=== PATIENT | male | born 1945 | race Caucasian/White ===

== ENCOUNTER 2018-03-08 07:58 | Inpatient (IN) | payer MEDICARE ==
[2018-03-08] MEDS ORDERED: LIDOCAINE 5% (700 MG) TRANSDERMAL ADH..PATCH TP ONE (09:08)
--- NOTE | 2018-03-08 09:51 | RADIOLOGY REPORT (SQ) ---
EXAM DESCRIPTION: CT LTD RENAL STONE PROTOCOL ON COMPLETED DATE/TIME: 03/08/2018 9:20 am REASON FOR STUDY: right flank pain COMPARISON: None. TECHNIQUE: CT scan of the abdomen and pelvis performed without intravenous or oral contrast. Images reviewed with lung, soft tissue, and bone windows. Reconstructed coronal and sagittal MPR images revi ewed. All images stored on PACS. All CT scanners at this facility use dose modulation, iterative reconstruction, and/or weight based d osing when appropriate to reduce radiation dose to as low as reasonably achievable (ALARA). [facility]: Dose Right [facility]: CareDose [facility]: Dose Right [facility]: Teradose 4D [facility]: Smart [employer] RADIATION DOSE: CT Rad equipment meets quality standard of care and radiation dose reduction techniq ues were employed. CTDIvol: 13.2 mGy. DLP: 770 mGy-cm.mGy. LIMITATIONS: None. FINDINGS: LOWER CHEST: No significant findings. No nodules or infiltrates. NON-CONTRASTED LIVER, SPLEEN, ADRENALS: Evaluation limited by lack of IV contrast. Spleen is enlarge d measuring 14 cm in craniocaudal dimension. No identified significant masses. PANCREAS: No masses. No peripancreatic inflammatory changes. GALLBLADDER: Gallbladder is contracted with calcified stones. RIGHT KIDNEY AND URETER: No suspicious masses. Assessment limited by lack of IV contrast. No signif icant calcifications. No hydronephrosis or hydroureter. Ectopic superior and lateral insertion of the ureter into the urinary bladder. LEFT KIDNEY AND URETER: No suspicious masses. Assessment limited by lack of IV contrast. No signifi cant calcifications. Very distal left ureter is moderately dilated without obstructing lesion or st one is visualized. Likely physiologic. Remainder the ureter is nondilated. Anterior and lateral ec topic insertion of the ureter. AORTA AND RETROPERITONEUM: No aneurysm. Mild scattered calcified plaque of the visualized aortoiliac system. No retroperitoneal masses or adenopathy. BOWEL AND PERITONEAL CAVITY: Small hiatal hernia with mild wall thickening. Metallic clips along the anterior antrum of the stomach. No dilated loops of bowel. No intraperitoneal free fluid or free a ir. APPENDIX: Normal. PELVIS, BLADDER, AND ABDOMINAL WALL:No abnormal masses. No free fluid. Urinary bladder wall is accen tuated as the urinary bladder is incompletely distended. Prostate is enlarged. BONES: Diffusely sclerotic appearance of the visualized osseous structures. Oblique pathological fra cture of the posterior inferior L1 vertebral body with 8 mm of retropulsion into the central canal. OTHER: No other significant finding. IMPRESSION: 1. No nephrolithiasis. Ectopic insertion of the ureters, as detailed above. 2. Diffusely sclerotic appearance of the osseous structures, concerning for metastatic disease. Path ological fracture of the posterior inferior L1 vertebral body with 8 mm of retropulsion into the cent ral canal. 3. Cholelithiasis. 4. Prostatomegaly. 5. Splenomegaly. 6. Small hiatal hernia with mild wall thickening. Correlate with patient's endoscopy history COMMENT: This report was called to KIMBERLY NOEL DO at09:42 on 03/08/2018. Quality ID # [id number]: Final reports with documentation of one or more dose reduction techniques (e.g., Au tomated exposure control, adjustment of the mA and/or kV according to patient size, use of iterative reconstruction technique) TECHNICAL DOCUMENTATION: JOB ID: [id number] [employer]- All Rights Reserved Reading location - IP/workstation name: [email or web address]
[2018-03-08 10:04] LABS: ABSOLUTE LYMPHOCYTES (AUTO) 0.9 10^3/uL (0.5-4.7); ABSOLUTE MONOCYTES (AUTO) 1.1 10^3/uL (0.1-1.4); ABSOLUTE NEUT (AUTO) 14.8 10^3/uL (1.7-8.2); BASOPHILS % (AUTO) 0.1 % (0-2); EOSINOPHILS % (AUTO) 0.1 % (0-6); HEMATOCRIT 38.3 % (37.9-51.0); HEMOGLOBIN 13.1 g/dL (13.5-17.0); LYMPHOCYTES % (AUTO) 5.5 % (13-45); MEAN CORPUSCULAR HEMOGLOBIN 29.8 pg (27.0-33.4); MEAN CORPUSCULAR HGB CONC 34.1 g/dL (32.0-36.0); MEAN CORPUSCULAR VOLUME 87 fl (80-97); MONOCYTES % (AUTO) 6.6 % (3-13); PLATELET COUNT 157 10^3/uL (150-450); RED BLOOD COUNT 4.39 10^6/uL (4.35-5.55); RED CELL DISTRIBUTION WIDTH 13.5 % (11.5-14.0); SEGMENTED NEUTROPHILS % (AUTO) 87.7 % (42-78); TOTAL CELLS COUNTED % (AUTO) 100 %; WHITE BLOOD COUNT 16.8 10^3/uL (4.0-10.5)
[2018-03-08 10:06] LABS: APPEARANCE,URINE CLOUDY; BILIRUBIN,URINE NEGATIVE (NEGATIVE); COLOR,URINE AMBER; GLUCOSE, URINE 50 mg/dL (NEGATIVE); KETONES,URINE NEGATIVE (NEGATIVE); LEUKOCYTE ESTERASE,URINE LARGE (NEGATIVE); NITRITE,URINE NEGATIVE (NEGATIVE); PROTEIN,URINE 100 mg/dL (NEGATIVE); URINE SPECIFIC GRAVITY 1.013
[2018-03-08 10:11] LABS: ALANINE AMINOTRANSFERASE 33 U/L (21-72); ALBUMIN 3.8 g/dL (3.5-5.0); ALKALINE PHOSPHATASE 1124 U/L (38-126); ASPARTATE AMINO TRANSFERASE 50 U/L (17-59); BILIRUBIN,DIRECT 0.9 mg/dL (0.0-0.4); BILIRUBIN,TOTAL 1.6 mg/dL (0.2-1.3); BLOOD UREA NITROGEN 68 mg/dL (7-20); CALCIUM 8.5 mg/dL (8.4-10.2); GLUCOSE 125 mg/dL (75-110); LIPASE 110.5 U/L (23-300); POTASSIUM 4.7 mmol/L (3.6-5.0); TOTAL PROTEIN 7.5 g/dL (6.3-8.2)
[2018-03-08] MEDS ORDERED: MORPHINE SULFATE 10 MG/ML INJ IV ONE (10:15)
[2018-03-08] MEDS ORDERED: ONDANSETRON HCL INJ/PF 4 MG/2 ML SDV IV ONE (10:15)
[2018-03-08 10:16] LABS: CARBON DIOXIDE 17 mmol/L (22-30); CHLORIDE 102 mmol/L (98-107); SODIUM 140.7 mmol/L (137-145)
[2018-03-08] MEDS ORDERED: DOXYCYCLINE HYCLATE INJ 100 MG VIAL IV ONE (10:18)
[2018-03-08 10:19] LABS: ANION GAP 22 (5-19)
[2018-03-08] MEDS ORDERED: NORMAL SALINE 1000 ML 1,000 ML IV ONE (10:36)
[2018-03-08] MEDS ORDERED: FENTANYL CITRATE INJ/PF 100 MCG/2 ML AMPUL IV ONE (12:24)
--- NOTE | 2018-03-08 13:33 | ER Document Report ---
ED General - General Chief Complaint: Back Pain Stated Complaint: BACK PAIN Time Seen by Provider: 03/08/18 08:55 TRAVEL OUTSIDE OF THE [place] IN LAST 30 DAYS: No - HPI Patient complains to provider of: Back pain Notes: Patient coming in for evaluation of back pain. Patient is currently visiting from [facility]. Patient states on past medical history is diabetes. Patient states no traumaHer back pain ongoing 2 weeks denies any heavy lifting or any new physical activity. Patient chronic tremors and has a fever for the last 48 hours afebrile here. T-max at home was 102. Patient denies any cough nausea vomiting diarrhea denies any difficulty in urinating. Patient states pain has been going across his back however today the pain is more prominent in the right flank area. Patient sitting states pain upon ambulation denies any numbness or tingling denies any saddle anesthesias or bowel or bladder incontinence. - Related Data Allergies/Adverse Reactions: Penicillins Allergy (Verified 03/08/18 08:03) Past Medical History - Social History Smoking Status: Unknown if Ever Smoked Family History: Reviewed & Not Pertinent Patient has suicidal ideation: No Patient has homicidal ideation: No Renal/ Medical History: Denies: Hx Peritoneal Dialysis Review of Systems - Review of Systems Constitutional: No symptoms reported EENT: No symptoms reported Cardiovascular: No symptoms reported Respiratory: No symptoms reported Gastrointestinal: No symptoms reported Genitourinary: No symptoms reported Male Genitourinary: No symptoms reported Musculoskeletal: Back pain Skin: No symptoms reported Hematologic/Lymphatic: No symptoms reported Neurological/Psychological: No symptoms reported -: Yes All other systems reviewed and negative Physical Exam - Vital signs Vitals: Temp Pulse Resp BP Pulse Ox 98.2 F 94 16 149/62 H 99 03/08/18 08:07 03/08/18 08:07 03/08/18 08:07 03/08/18 08:07 03/08/18 08:07 Interpretation: Normal - General General appearance: Appears well, Alert - HEENT Head: Normocephalic, Atraumatic Eyes: Normal Pupils: PERRL - Respiratory Respiratory status: No respiratory distress Chest status: Nontender Breath sounds: Normal Chest palpation: Normal - Cardiovascular Rhythm: Regular Heart sounds: Normal auscultation Murmur: No - Abdominal Inspection: Normal Distension: No distension Bowel sounds: Normal Tenderness: Nontender Organomegaly: No organomegaly - Rectal Prostate: Enlarged - Nontender Notes: Skin tag of the buttocks. Evaluation shows light brown stool rectal tone is intact. Palpation of the prostate is enlarged prostate however is nontender. - Back Back: Normal, Nontender - Extremities General upper extremity: Normal inspection, Nontender, Normal color, Normal ROM , Normal temperature General lower extremity: Normal inspection, Nontender, Normal color, Normal ROM , Normal temperature, Normal weight bearing. No: Marielle's sign - Neurological Neuro grossly intact: Yes Cognition: Normal Orientation: AAOx4 Alexandra Coma Scale Eye Opening: Spontaneous Peck Coma Scale Verbal: Oriented Alexandra Coma Scale Motor: Obeys Commands Alexandra Coma Scale Total: 15 Speech: Normal Motor strength normal: LUE, RUE, LLE, RLE Sensory: Normal - Psychological Associated symptoms: Normal affect, Normal mood - Skin Skin Temperature: Warm Skin Moisture: Dry Skin Color: Normal Course - Re-evaluation Re-evalutation: 03/08/18 13:31 Patient coming in with lower back pain with no neurological deficits. No saddle anesthesias normal rectal tone able to ambulate in the ER knee reflexes intact. CT scan showed his irregular prostate will more likely metastatic disease in the spine causing a pathological fracture of L1 with 8 mm retropulsion into the spinal canal. I did discuss patient's case with Dr. Jovany Mcgregor neurosurgery at [facility] he was able to look at the films have been performed here in the ER. At this time since the patient has no neurological symptoms and with the films does not see a need for any emergent neurological services to be provided. Recommend pain control recommend the patient stay here in the ER at the hospital for any significant metastases and possibly have an MRI of the spine performed. Patient is from [facility] and wishing to go back to [place] for his treatment. At this time because the abnormalities of white count leukocytosis acute renal failure with a urinary tract infection did discuss with the hospitalist after discussing the patient's case with neurosurgery. Will admit the patient for the renal failure and infection will continue to monitor patient - Vital Signs Vital signs: Temp Pulse Resp BP Pulse Ox 98.1 F 75 16 153/59 H 98 03/08/18 12:28 03/08/18 12:28 03/08/18 12:28 03/08/18 12:28 03/08/18 12:28 - Laboratory Result Diagrams: 03/08/18 09:28 03/08/18 09:28 Laboratory results interpreted by me: 03/08/18 03/08/18 03/08/18 09:28 09:28 09:28 WBC 16.8 H Hgb 13.1 L Seg Neutrophils % 87.7 H Lymphocytes % 5.5 L Absolute Neutrophils 14.8 H Carbon Dioxide 17 L Anion Gap 22 H BUN 68 H Creatinine 4.57 H Est GFR ( Amer) 15 L Est GFR (Non-Af Amer) 13 L Glucose 125 H Lactic Acid Total Bilirubin 1.6 H Direct Bilirubin 0.9 H Alkaline Phosphatase 1124 H Urine Protein 100 H Urine Glucose (UA) 50 H Urine Blood LARGE H Urine Urobilinogen 4.0 H Ur Leukocyte Esterase LARGE H 03/08/18 14:17 WBC Hgb Seg Neutrophils % Lymphocytes % Absolute Neutrophils Carbon Dioxide Anion Gap BUN Creatinine Est GFR ( Amer) Est GFR (Non-Af Amer) Glucose Lactic Acid 2.2 H Total Bilirubin Direct Bilirubin Alkaline Phosphatase Urine Protein Urine Glucose (UA) Urine Blood Urine Urobilinogen Ur Leukocyte Esterase Discharge - Discharge Clinical Impression: Metastatic bone lesions, Cholelithiasis, Diabetes mellitus type 2 in nonobese, Pathologic compression fracture of spine, Enlarged prostate, Elevated alkaline phosphatase level Urinary tract infection Qualifiers: Urinary tract infection type: acute cystitis Hematuria presence: with hematuria Qualified Code(s): N30.01 - Acute cystitis with hematuria Acute renal failure Qualifiers: Acute renal failure type: unspecified Qualified Code(s): N17.9 - Acute kidney failure, unspecified Condition: Good Disposition: ADMITTED INPATIENT Admitting Provider: Hospitalist - Dut Unit Admitted: Medical Floor
[2018-03-08] MEDS ORDERED: CEFTRIAXONE 1 GM/D5W RTU 1 GM/50 ML RTUPB IV ONE (13:34)
[2018-03-08] MEDS ORDERED: CEFTRIAXONE INJ 1000 MG VIAL ONE (13:56)
[2018-03-08] MEDS ORDERED: ONDANSETRON HCL INJ/PF 4 MG/2 ML SDV IV PRN (14:08)
[2018-03-08] MEDS ORDERED: ACETAMINOPHEN 325 MG TABLET PO PRN (14:08)
[2018-03-08] MEDS ORDERED: OXYCODONE-ACETAMINOPHEN 5-325 MG TABLET PO PRN (14:08)
[2018-03-08] MEDS ORDERED: DEXTROSE 40% GEL 15 GM TUBE PO PRN ×2 (14:18)
[2018-03-08] MEDS ORDERED: DEXTROSE 50%-WATER 25 GM/50 ML DISP.SYRIN IV PRN ×2 (14:18)
[2018-03-08] MEDS ORDERED: GLUCAGON,HUMAN RECOMB 1 MG INJ IM PRN (14:18)
[2018-03-08] MEDS ORDERED: DEXAMETHASONE SOD PHOS INJ 10 MG/1 ML VIAL IV ONE (14:37)
--- NOTE | 2018-03-08 14:52 | PDOC H&P ---
History of Present Illness Admission Date/PCP: 03/08/18 1400 out of [facility] PCP Patient complains of: back pain History of Present Illness: SY MONTE is a 72 year old male with past medical history of only diabetes, who presented to the ED complaining of lower back pain which started about 2 weeks ago. Patient states that he has been having lower back pain for the last 2 weeks but it has been tolerable. States he has been taking some over -the-counter pain medicine for it although it has been progressively getting worse. Last night he just could not take it anymore as the pain was 10 out of 10 and hence he came to the ER this morning for worsening back pain. He denies abdominal pain, nausea/vomiting, groin numbness, bowel/urinary incontinence or lower extremity weakness. He does admit to having a fever on 03/04/18 of 102 Fahrenheit and has been feeling some chills otherwise. He is back pain is nonradiating and sharp in nature. He denies any alleviating factors but movement does make it worse. He denies dysuria, chest pain, shortness of breath , headaches or blurry vision at this time. He does admit to some urinary frequency and urgency at times. Patient is from out of [facility], [facility]. 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 States that he was diagnosed with diabetes type 2 last year and has been on metformin since. Family and patient tells me that his A1c is well controlled but does not know how much it is. In the ED he received 1 dose of doxy and he had a CT of the lumbar spine due to pain which revealed some abnormal findings. Please see CT results for exact findings. Past Medical History Endocrine Medical History: Reports: Diabetes Mellitus Type 2 Malignancy History Note: None that he knows of Social History Smoking Status: Unknown if Ever Smoked - Advance Directive Resuscitation Status: Declines CPR but accepts intubation Family History Parental Family History Reviewed: Yes Children Family History Reviewed: Unknown Sibling(s) Family History Reviewed.: Unknown Medication/Allergy Allergies/Adverse Reactions: Penicillins Allergy (Verified 03/08/18 08:03) Review of Systems All systems: reviewed and no additional remarkable complaints except as stated Constitutional: PRESENT: chills, fever(s) Cardiovascular: ABSENT: chest pain Respiratory: ABSENT: cough Gastrointestinal: ABSENT: abdominal pain, nausea, vomiting Musculoskeletal: PRESENT: back pain. ABSENT: joint swelling Hematologic/Lymphatic: ABSENT: easy bruising, lymphadenopathy Physical Exam Vital Signs: Temp Pulse Resp BP Pulse Ox 98.1 F 75 16 153/59 H 98 03/08/18 12:28 03/08/18 12:28 03/08/18 12:28 03/08/18 12:28 03/08/18 12:28 Intake & Output 03/07/18 03/08/18 03/09/18 06:59 06:59 06:59 Intake Total 1000 Balance 1000 Weight 209 lb 3.499 oz General appearance: PRESENT: no acute distress, well-developed, well-nourished Head exam: PRESENT: atraumatic, normocephalic Eye exam: PRESENT: EOMI, PERRLA. ABSENT: scleral icterus Ear exam: PRESENT: normal external ear exam Mouth exam: PRESENT: neck supple, tongue midline Neck exam: ABSENT: tracheal deviation Cardiovascular exam: PRESENT: +S1, +S2 Pulses: PRESENT: +2 pedal pulses bilateral GI/Abdominal exam: PRESENT: normal bowel sounds, soft. ABSENT: tenderness Extremities exam: ABSENT: joint swelling, pedal edema Musculoskeletal exam: PRESENT: full ROM, tenderness - Midline thoracic backroom associate to palpation Neurological exam: PRESENT: alert, awake, oriented to person, oriented to place , oriented to time, oriented to situation, CN II-XII grossly intact Skin exam: PRESENT: dry, warm Results Laboratory Results: 03/08/18 09:28 03/08/18 09:28 03/08/18 03/08/18 03/08/18 09:28 09:28 09:28 WBC 16.8 H RBC 4.39 Hgb 13.1 L Hct 38.3 MCV 87 MCH 29.8 MCHC 34.1 RDW 13.5 Plt Count 157 Seg Neutrophils % 87.7 H Lymphocytes % 5.5 L Monocytes % 6.6 Eosinophils % 0.1 Basophils % 0.1 Absolute Neutrophils 14.8 H Absolute Lymphocytes 0.9 Absolute Monocytes 1.1 Absolute Eosinophils 0.0 Absolute Basophils 0.0 Sodium 140.7 Potassium 4.7 Chloride 102 Carbon Dioxide 17 L Anion Gap 22 H BUN 68 H Creatinine 4.57 H Est GFR ( Amer) 15 L Est GFR (Non-Af Amer) 13 L Glucose 125 H Calcium 8.5 Total Bilirubin 1.6 H AST 50 ALT 33 Alkaline Phosphatase 1124 H Total Protein 7.5 Albumin 3.8 Lipase 110.5 Urine Color RINA Urine Appearance CLOUDY Urine pH 5.0 Ur Specific Aurora 1.013 Urine Protein 100 H Urine Glucose (UA) 50 H Urine Ketones NEGATIVE Urine Blood LARGE H Urine Nitrite NEGATIVE Ur Leukocyte Esterase LARGE H Urine WBC (Auto) >182 Urine RBC (Auto) >182 03/08/18 09:28 Creatine Kinase 91 Impressions: Limited or Localized CT 03/08/18 09:07 IMPRESSION: 1. No nephrolithiasis. Ectopic insertion of the ureters, as detailed above. 2. Diffusely sclerotic appearance of the osseous structures, concerning for metastatic disease. Pathological fracture of the posterior inferior L1 vertebral body with 8 mm of retropulsion into the central canal. 3. Cholelithiasis. 4. Prostatomegaly. 5. Splenomegaly. 6. Small hiatal hernia with mild wall thickening. Correlate with patient's endoscopy history Assessment & Plan - Diagnosis (1) Sepsis Is this a current diagnosis for this admission?: Yes Plan: Elevated white count, tachycardia, fever at home and abnormal UA. Likely his sepsis secondary to his UTI. In the ER he received 1 dose of doxycycline. All stop doxy and continue with Rocephin daily. Urine cultures and blood cultures have been sent and pending. (2) UTI (urinary tract infection), bacterial Is this a current diagnosis for this admission?: Yes Plan: See plan above (3) Acute renal failure Qualifiers: Acute renal failure type: unspecified Qualified Code(s): N17.9 - Acute kidney failure, unspecified Is this a current diagnosis for this admission?: Yes Plan: Unclear cause of his renal failure but he did mention that he has not been having good p.o. intake in the last few days.? Hydronephrosis. CT scan without contrast did not show any but to get a better picture we will go ahead and stat order an ultrasound renal. He has no history of kidney disease and today's creatinine is greater than 4. Concern for hydronephrosis. Start him on IV fluids with normal saline at 150 cc/h and repeat blood work in the morning. I am hoping his creatinine will improve gradually. Hold nephrotoxic agents. (4) Pathologic compression fracture of spine Is this a current diagnosis for this admission?: Yes Plan: CT scan shows sclerotic lesions of the spine with an L1 fracture that is suspected to be pathologic. Given his enlarged prostate and sclerotic lesions there is a concern for metastatic disease. I have ordered a PSA. I will also consulted oncology with Dr. Pena. He has recommended some extended blood work and testing also. Patient comes from [place] and I discussed about further workup and they at this time would like his kidney functions improved and they want to go back to [place] for further workup for suspected cancer. I will also ordered an MRI but patient declined MRI as nursing informed me later. Pain control for now. He denies any urinary/bowel incontinence or groin numbness at this time. (5) Enlarged prostate Is this a current diagnosis for this admission?: Yes Plan: See plan above (6) Elevated alkaline phosphatase level Is this a current diagnosis for this admission?: Yes Plan: Likely secondary to suspected metastatic disease-? Prostate cancer (7) Diabetes mellitus type 2 in nonobese Is this a current diagnosis for this admission?: Yes Plan: He is not sure of his A1c number-we will check it tomorrow. Hold metformin for now given his acute renal failure. Start him on sliding scale insulin for now. (8) Hiatal hernia Is this a current diagnosis for this admission?: Yes Plan: Incidental finding on EX-[id number]-[id number] (9) Cholelithiasis Is this a current diagnosis for this admission?: Yes Plan: Incidental finding on CT-he does not profess of any abdominal pains at this time. Will monitor for now. (10) Lumbar back pain Is this a current diagnosis for this admission?: Yes Plan: Likely secondary to his pathological fracture as discussed above- see plan. - Time Time Spent: 50 to 70 Minutes - Plan Summary Plan Summary: Admit inpatient-I expect him to stay for at least 2 midnights requiring IV fluids and IV antibiotics.
[2018-03-08] MEDS: NORMAL SALINE 1000 ML 1,000 ML IV PRN ×2 (15:22→23:00)
--- NOTE | 2018-03-08 16:00 | RADIOLOGY REPORT (SQ) ---
EXAM DESCRIPTION: U/S RETROPERITON (RENAL/AORTA) COMPLETED DATE/TIME: 03/08/2018 3:51 pm REASON FOR STUDY: arf COMPARISON: CT 03/08/2018 TECHNIQUE: Dynamic and static grayscale images acquired of the kidneys and bladder and recorded on P ACS. Additional selected color Doppler and spectral images recorded. LIMITATIONS: Suboptimal exam due to overlying bowel shadowing. FINDINGS: RIGHT KIDNEY: Normal size measuring 9.5 cm in length. Normal echogenicity. No hydronephr osis. LEFT KIDNEY: Normal size measuring 9.9 cm in length. Normal echogenicity. No hydronephrosis. BLADDER: Mildly distended without discrete mass or wall thickening. OTHER FINDINGS: No other significant finding. IMPRESSION: Suboptimal exam due to overlying bowel gas. No hydronephrosis. TECHNICAL DOCUMENTATION: JOB ID: [id number] [employer]- All Rights Reserved Reading location - IP/workstation name: [email or web address]
[2018-03-08] MEDS ORDERED: DEXAMETHASONE 4 MG TABLET ONE (18:14)
[2018-03-08] MEDS: DEXAMETHASONE 4 MG TABLET PO SCH ×2 (18:18→23:00)
[2018-03-08] MEDS: HEPARIN SOD (PORCINE) 5,000 UNIT/ML 1 ML SYRINGE SUBCUT SCH (21:42)
[2018-03-08] MEDS: FAMOTIDINE 20 MG TABLET PO SCH (21:42)
[2018-03-09] MEDS ORDERED: VANCOMYCIN HCL 1,000 MG in DEXTROSE 5%-WATER 250 ML IV ONE (03:00)
[2018-03-09] MEDS ORDERED: VANCOMYCIN HCL INJ 1000 MG VIAL IV PRN ×2 (03:00→04:13)
[2018-03-09] MEDS ORDERED: VANCOMYCIN HCL INJ 1000 MG VIAL ONE (03:27)
[2018-03-09] MEDS: DEXAMETHASONE 4 MG TABLET PO SCH ×4 (05:21→23:05)
[2018-03-09 05:55] LABS: HEMATOCRIT 34.2 % (37.9-51.0); HEMOGLOBIN 11.6 g/dL (13.5-17.0); MEAN CORPUSCULAR HEMOGLOBIN 29.7 pg (27.0-33.4); MEAN CORPUSCULAR VOLUME 87 fl (80-97); PLATELET COUNT 100 10^3/uL (150-450); RED BLOOD COUNT 3.92 10^6/uL (4.35-5.55); WHITE BLOOD COUNT 14.9 10^3/uL (4.0-10.5)
[2018-03-09] MEDS: NORMAL SALINE 1000 ML 1,000 ML IV PRN ×3 (06:16→21:23)
[2018-03-09] MEDS: HEPARIN SOD (PORCINE) 5,000 UNIT/ML 1 ML SYRINGE SUBCUT SCH ×3 (06:20→21:20)
[2018-03-09 06:29] LABS: ABSOLUTE LYMPHOCYTES# (MANUAL) 1.5 10^3/uL (0.5-4.7); ABSOLUTE NEUTROPHILS# (MANUAL) 13.4 10^3/uL (1.7-8.2); BASOPHILS % (MANUAL) 0 % (0-2); BLOOD UREA NITROGEN 77 mg/dL (7-20); CALCIUM 8.3 mg/dL (8.4-10.2); CARBON DIOXIDE 17 mmol/L (22-30); CHLORIDE 107 mmol/L (98-107); EOSINOPHILS % (MANUAL) 0 % (0-6); GLUCOSE 156 mg/dL (75-110); LYMPHOCYTES % (MANUAL) 10 % (13-45); MONOCYTES % (MANUAL) 0 % (3-13); SEGMENTED NEUTROPHILS % (MAN) 90 % (42-78); TOTAL CELLS COUNTED 100
[2018-03-09 06:30] LABS: ANION GAP 16 (5-19); CHOLESTEROL 141.64 mg/dL (0-200); PLATELET COMMENT ADEQUATE; POLYCHROMASIA 1+; SODIUM 139.5 mmol/L (137-145); TRIGLYCERIDES 230 mg/dL (<150)
[2018-03-09 06:40] LABS: DIRECT LDL 41 mg/dL (<100)
[2018-03-09 07:28] LABS: INTERNATIONAL RATION (INR) 1.22
[2018-03-09] MEDS: INSULIN REG, HUMAN 100 UNIT/ML 3 ML VIAL (PYX) SUBCUT PRN ×3 (09:23→21:20)
[2018-03-09] MEDS ORDERED: CEFTRIAXONE 1 GM/D5W RTU 1 GM/50 ML RTUPB IV SCH (10:00)
[2018-03-09] MEDS: CEFTRIAXONE SODIUM 1,000 MG in NORMAL SALINE 50 ML IV SCH (11:04)
--- NOTE | 2018-03-09 12:27 | PDOC CONSULTATION ---
Consultation Consult Date: 03/09/18 Attending physician:: JHON NAVAS Consult reason:: Newly noted bone lesions, severe back pain, renal failure History of Present Illness Admission Date/PCP: 03/08/18 14:33 Patient complains of: Back pain increasing over the last few months History of Present Illness: SY MONTE is a 72 year old male with recent history of increasing low back as well as left hip pain. He is visiting from [facility], and over the last 2-3 months has been increasing pain. Over the last week since he has been here, visiting at [facility], he has had severe pain to the point that he is not able to walk easily, and is at very poor p.o. intake taking in very limited fluids. Ultimately he was unable to get up easily so they brought him here to the ED, he had a CT noncontrasted stone protocol of the abdomen, which indicated diffuse sclerotic metastasis throughout the bony structures, L1 compression fracture with some retropulsion into central canal. I discussed this case with hospitalist yesterday, suggested initiation of Decadron 10 mg IV followed by 4 mg p.o. every 6 hours. Unfortunately his creatinine was 4.5 upon admission, slightly better today at 4.3. He has had aggressive hydration. Overall he feels much better today. Over the last year he has lost about 10-15 pounds but he has been trying to lose weight. Past Medical History Endocrine Medical History: Reports: Diabetes Mellitus Type 2 Past Surgical History Past Surgical History: Reports: Appendectomy Social History Smoking Status: Never Smoker Frequency of Alcohol Use: Social Hx Recreational Drug Use: No Drugs: None Hx Prescription Drug Abuse: No - Advance Directive Resuscitation Status: Declines CPR but accepts intubation Family History Family History: Reviewed & Not Pertinent Parental Family History Reviewed: Yes Children Family History Reviewed: Yes Sibling(s) Family History Reviewed.: Yes Medication/Allergy Home Medications: Metformin HCl [Glucophage 500 mg Tablet] 500 mg PO DAILY 03/08/18 Allergies/Adverse Reactions: Penicillins Allergy (Verified 03/08/18 08:03) Review of Systems Constitutional: PRESENT: fatigue, weakness, weight loss Cardiovascular: ABSENT: chest pain, dyspnea on exertion, edema, orthropnea, palpitations Gastrointestinal: ABSENT: abdominal pain, constipation, diarrhea, hematemesis, hematochezia, nausea, vomiting Musculoskeletal: PRESENT: back pain Neurological: ABSENT: abnormal gait, abnormal speech, confusion, dizziness, focal weakness, syncope Physical Exam Vital Signs: Temp Pulse Resp BP Pulse Ox 97.5 F 67 16 139/57 H 96 03/09/18 07:32 03/09/18 07:32 03/09/18 07:32 03/09/18 07:32 03/09/18 07:32 Intake & Output 03/08/18 03/09/18 03/10/18 06:59 06:59 06:59 Intake Total 2759 Output Total 475 Balance 2284 Weight 97.6 kg General appearance: PRESENT: no acute distress, well-developed, well-nourished Head exam: PRESENT: atraumatic, normocephalic Eye exam: PRESENT: conjunctiva pink, EOMI, PERRLA. ABSENT: scleral icterus Ear exam: PRESENT: normal external ear exam Mouth exam: PRESENT: moist, tongue midline Neck exam: ABSENT: carotid bruit, JVD, lymphadenopathy, thyromegaly Respiratory exam: PRESENT: clear to auscultation syed. ABSENT: rales, rhonchi, wheezes Cardiovascular exam: PRESENT: RRR. ABSENT: diastolic murmur, rubs, systolic murmur Pulses: PRESENT: normal dorsalis pedis pul Vascular exam: PRESENT: normal capillary refill GI/Abdominal exam: PRESENT: normal bowel sounds, soft. ABSENT: distended, guarding, mass, organolmegaly, rebound, tenderness Rectal exam: PRESENT: deferred Extremities exam: PRESENT: full ROM. ABSENT: calf tenderness, clubbing, pedal edema Neurological exam: PRESENT: alert, awake, oriented to person, oriented to place , oriented to time, oriented to situation, CN II-XII grossly intact. ABSENT: motor sensory deficit Psychiatric exam: PRESENT: appropriate affect, normal mood. ABSENT: homicidal ideation, suicidal ideation Skin exam: PRESENT: dry, intact, warm. ABSENT: cyanosis, rash Results Laboratory Results: 03/09/18 05:17 03/09/18 05:17 03/08/18 03/09/18 03/09/18 18:48 05:17 05:17 WBC 14.9 H RBC 3.92 L Hgb 11.6 L Hct 34.2 L MCV 87 MCH 29.7 MCHC 34.0 RDW 14.0 Plt Count 100 L Seg Neutrophils % Not Reportable Lymphocytes % Not Reportable Monocytes % Not Reportable Eosinophils % Not Reportable Basophils % Not Reportable Absolute Neutrophils Not Reportable Absolute Lymphocytes Not Reportable Absolute Monocytes Not Reportable Absolute Eosinophils Not Reportable Absolute Basophils Not Reportable Sodium 139.5 Potassium 5.0 Chloride 107 Carbon Dioxide 17 L Anion Gap 16 BUN 77 H Creatinine 4.32 H Est GFR ( Amer) 17 L Est GFR (Non-Af Amer) 14 L Glucose 156 H Lactic Acid 1.3 Calcium 8.3 L Magnesium 2.4 H Triglycerides 230 H Cholesterol 141.64 LDL Cholesterol Direct 41 VLDL Cholesterol 46.0 H HDL Cholesterol 21 L TSH 03/09/18 05:17 WBC RBC Hgb Hct MCV MCH MCHC RDW Plt Count Seg Neutrophils % Lymphocytes % Monocytes % Eosinophils % Basophils % Absolute Neutrophils Absolute Lymphocytes Absolute Monocytes Absolute Eosinophils Absolute Basophils Sodium Potassium Chloride Carbon Dioxide Anion Gap BUN Creatinine Est GFR ( Amer) Est GFR (Non-Af Amer) Glucose Lactic Acid Calcium Magnesium Triglycerides Cholesterol LDL Cholesterol Direct VLDL Cholesterol HDL Cholesterol TSH 3.43 Impressions: Renal Ultrasound 03/08/18 00:00 IMPRESSION: Suboptimal exam due to overlying bowel gas. No hydronephrosis. Limited or Localized CT 03/08/18 09:07 IMPRESSION: 1. No nephrolithiasis. Ectopic insertion of the ureters, as detailed above. 2. Diffusely sclerotic appearance of the osseous structures, concerning for metastatic disease. Pathological fracture of the posterior inferior L1 vertebral body with 8 mm of retropulsion into the central canal. 3. Cholelithiasis. 4. Prostatomegaly. 5. Splenomegaly. 6. Small hiatal hernia with mild wall thickening. Correlate with patient's endoscopy history Status: Image reviewed by me Assessment & Plan - Diagnosis (1) Pathologic compression fracture of spine Qualifiers: Encounter type: initial encounter Qualified Code(s): M48.50XA - Collapsed vertebra, not elsewhere classified, site unspecified, initial encounter for fracture Is this a current diagnosis for this admission?: Yes Plan: He does have L1 compression fracture, overall imaging concerning for bony metastasis. Continue with steroids. (2) Secondary malignant melanoma of bone Is this a current diagnosis for this admission?: Yes Plan: Does appear to be probably a metastatic bone lesion, the 2 top likelihoods would be prostate cancer as well as multiple myeloma. Today I sent off a myeloma workup. But ultimately, he would need biopsy of a bony area, consideration of biopsy of the L1 as well as kyphoplasty at the same time would be possible. However patient really wants to get workup and treatment done closer to home in [facility]. So our goal here would be to hydrate him, hopefully improve his kidney function, probably get him to a dischargeable condition and communicate with physicians in [facility] on lab results done here. No further imaging is possible given his kidney function. (3) Acute renal failure Qualifiers: Acute renal failure type: unspecified Qualified Code(s): N17.9 - Acute kidney failure, unspecified Is this a current diagnosis for this admission?: Yes Plan: Unknown cause of acute renal failure, it is not hydronephrosis as both ultrasound as well as CT is ruled that out. It may be direct damage to the kidneys from the malignant process or severe dehydration. Hydration is continued for now. Awaiting improvement. Patient is making urine and electrolytes are reasonable, so I do not think at this point there is any acute reason for dialysis. - Time Time Spent: Greater than 70 Minutes - Inpatient Certification Based on my medical assessment, after consideration of the patient's comorbidities, presenting symptoms, or acuity I expect that the services needed warrant INPATIENT care.: Yes I certify that my determination is in accordance with my understanding of Medicare's requirements for reasonable and necessary INPATIENT services [42 CFR 412.3e].: Yes Medical Necessity: Need For IV Fluids
--- NOTE | 2018-03-09 15:28 | PDOC PROGRESS REPORT ---
Subjective Progress Note for:: 03/09/18 - Seen on rounds this morning Subjective:: Patient states he feels much better today. States if he felt this well then he would have gotten on the flight yesterday and went back to his home town [facility]. 72-year-old male who came to the ED yesterday complaining of back pain and found to have acute renal failure and questionable metastatic disease to the spine. Oncology is consulted and working him up but patient wants full workup when he is back to [facility]. Today both sets of his blood cultures have been found to be positive Reason For Visit: ARF,SEPSIS,UTI Physical Exam Vital Signs: Temp Pulse Resp BP Pulse Ox 97.7 F 66 18 125/56 L 100 03/09/18 12:00 03/09/18 12:00 03/09/18 12:00 03/09/18 12:00 03/09/18 12:00 Intake & Output 03/08/18 03/09/18 03/10/18 06:59 06:59 06:59 Intake Total 2759 933 Output Total 475 400 Balance 2284 533 Weight 215 lb 2.738 oz Results Laboratory Results: 03/09/18 05:17 03/09/18 05:17 03/08/18 03/09/18 03/09/18 18:48 05:17 05:17 WBC 14.9 H RBC 3.92 L Hgb 11.6 L Hct 34.2 L MCV 87 MCH 29.7 MCHC 34.0 RDW 14.0 Plt Count 100 L Seg Neutrophils % Not Reportable Lymphocytes % Not Reportable Monocytes % Not Reportable Eosinophils % Not Reportable Basophils % Not Reportable Absolute Neutrophils Not Reportable Absolute Lymphocytes Not Reportable Absolute Monocytes Not Reportable Absolute Eosinophils Not Reportable Absolute Basophils Not Reportable Sodium 139.5 Potassium 5.0 Chloride 107 Carbon Dioxide 17 L Anion Gap 16 BUN 77 H Creatinine 4.32 H Est GFR ( Amer) 17 L Est GFR (Non-Af Amer) 14 L Glucose 156 H Lactic Acid 1.3 Calcium 8.3 L Magnesium 2.4 H Triglycerides 230 H Cholesterol 141.64 LDL Cholesterol Direct 41 VLDL Cholesterol 46.0 H HDL Cholesterol 21 L TSH 03/09/18 05:17 WBC RBC Hgb Hct MCV MCH MCHC RDW Plt Count Seg Neutrophils % Lymphocytes % Monocytes % Eosinophils % Basophils % Absolute Neutrophils Absolute Lymphocytes Absolute Monocytes Absolute Eosinophils Absolute Basophils Sodium Potassium Chloride Carbon Dioxide Anion Gap BUN Creatinine Est GFR ( Amer) Est GFR (Non-Af Amer) Glucose Lactic Acid Calcium Magnesium Triglycerides Cholesterol LDL Cholesterol Direct VLDL Cholesterol HDL Cholesterol TSH 3.43 Impressions: Renal Ultrasound 03/08/18 00:00 IMPRESSION: Suboptimal exam due to overlying bowel gas. No hydronephrosis. Limited or Localized CT 03/08/18 09:07 IMPRESSION: 1. No nephrolithiasis. Ectopic insertion of the ureters, as detailed above. 2. Diffusely sclerotic appearance of the osseous structures, concerning for metastatic disease. Pathological fracture of the posterior inferior L1 vertebral body with 8 mm of retropulsion into the central canal. 3. Cholelithiasis. 4. Prostatomegaly. 5. Splenomegaly. 6. Small hiatal hernia with mild wall thickening. Correlate with patient's endoscopy history Assessment & Plan - Diagnosis (1) Bacteremia Is this a current diagnosis for this admission?: Yes Plan: See plan for sepsis (2) Sepsis Qualifiers: Sepsis type: sepsis due to unspecified organism Qualified Code(s): A41.9 - Sepsis, unspecified organism Is this a current diagnosis for this admission?: Yes Plan: Elevated white count, tachycardia, fever at home and abnormal UA. Likely his sepsis secondary to his UTI. In the ER he received 1 dose of doxycycline. All stop doxy and continue with Rocephin daily. Urine cultures and blood cultures have been sent and pending. Today I have added vancomycin due to positive blood cultures in both sets. At this time since urine culture is growing mixed mark it is unclear the source of this infection. I have ordered an echo to rule out any endocarditis or vegetation. Currently remains afebrile. We will continue with Rocephin and vancomycin for now. (3) UTI (urinary tract infection), bacterial Is this a current diagnosis for this admission?: Yes Plan: So far urine culture is growing mixed mark. See plans for sepsis (4) Acute renal failure Qualifiers: Acute renal failure type: unspecified Qualified Code(s): N17.9 - Acute kidney failure, unspecified Is this a current diagnosis for this admission?: Yes Plan: Unclear cause of his renal failure but he did mention that he has not been having good p.o. intake in the last few days.? No hydronephrosis seen on renal ultrasound although was limited quality. He has no history of kidney disease and today's creatinine is greater than 4 but has trended down slightly. Started him on IV fluids with normal saline at 150 cc/h and repeat blood work in the morning. I am hoping his creatinine will improve gradually. Hold nephrotoxic agents. (5) Pathologic compression fracture of spine Qualifiers: Encounter type: initial encounter Qualified Code(s): M48.50XA - Collapsed vertebra, not elsewhere classified, site unspecified, initial encounter for fracture Is this a current diagnosis for this admission?: Yes Plan: CT scan shows sclerotic lesions of the spine with an L1 fracture that is suspected to be pathologic. Given his enlarged prostate and sclerotic lesions there is a concern for metastatic disease versus multiple myeloma. I have ordered a PSA and it is pending. I also consulted oncology with Dr. Pena. I appreciate his recommendations-I spoke with him also today about patient and we will continue with current plan of management. He has recommended some extended blood work and testing also. Patient comes from [place] and I discussed about further workup and they at this time would like his kidney functions improved and they want to go back to [place] for further workup for suspected cancer. I will also ordered an MRI but patient declined MRI-have discussed the risks and benefits of his decision and he verbalizes understanding. Pain control for now. He denies any urinary/bowel incontinence or groin numbness at this time. (6) Enlarged prostate Is this a current diagnosis for this admission?: Yes (7) Elevated alkaline phosphatase level Is this a current diagnosis for this admission?: Yes (8) Diabetes mellitus type 2 in nonobese Is this a current diagnosis for this admission?: Yes (9) Hiatal hernia Is this a current diagnosis for this admission?: Yes (10) Cholelithiasis Is this a current diagnosis for this admission?: Yes (11) Lumbar back pain Is this a current diagnosis for this admission?: Yes - Time Time Spent with patient: 35 or more minutes - Plan Summary Plan Summary: Continue with IV hydration and was his renal function is at baseline peak can discharge him so he can follow-up with his PCP and hematology/oncology back in [facility]
--- NOTE | 2018-03-09 16:16 | RADIOLOGY REPORT (SQ) ---
EXAM DESCRIPTION: CHEST SINGLE VIEW COMPLETED DATE/TIME: 03/09/2018 4:04 pm REASON FOR STUDY: positive blood culture- ?pneumonia COMPARISON: None. EXAM PARAMETERS: NUMBER OF VIEWS: One view. TECHNIQUE: Single frontal radiographic view of the chest acquired. RADIATION DOSE: NA LIMITATIONS: None. FINDINGS: LUNGS AND PLEURA: No opacities, masses or pneumothorax. No pleural effusion. MEDIASTINUM AND HILAR STRUCTURES: No masses. Contour normal. HEART AND VASCULAR STRUCTURES: Heart normal in size. Normal vasculature. BONES: No acute findings. HARDWARE: None in the chest. OTHER: No other significant finding. IMPRESSION: NO ACUTE RADIOGRAPHIC FINDING IN THE CHEST. TECHNICAL DOCUMENTATION: JOB ID: [id number]- All Rights Reserved Reading location - IP/workstation name: [email or web address]
[2018-03-09 16:42] LABS: ANION GAP 16 (5-19); BLOOD UREA NITROGEN 85 mg/dL (7-20); CALCIUM 8.6 mg/dL (8.4-10.2); CARBON DIOXIDE 15 mmol/L (22-30); CHLORIDE 107 mmol/L (98-107); GLUCOSE 162 mg/dL (75-110); POTASSIUM 5.4 mmol/L (3.6-5.0); SODIUM 138.2 mmol/L (137-145)
[2018-03-09] MEDS ORDERED: VANCOMYCIN HCL 400 MG in DEXTROSE 5%-WATER 100 ML IV ONE (18:00)
[2018-03-09] MEDS: FAMOTIDINE 20 MG TABLET PO SCH (18:32)
[2018-03-10 05:41] LABS: HEMATOCRIT 30.3 % (37.9-51.0); HEMOGLOBIN 10.4 g/dL (13.5-17.0); MEAN CORPUSCULAR HEMOGLOBIN 29.9 pg (27.0-33.4); MEAN CORPUSCULAR HGB CONC 34.3 g/dL (32.0-36.0); MEAN CORPUSCULAR VOLUME 87 fl (80-97); PLATELET COUNT 103 10^3/uL (150-450); RED BLOOD COUNT 3.47 10^6/uL (4.35-5.55); WHITE BLOOD COUNT 10.7 10^3/uL (4.0-10.5)
[2018-03-10] MEDS: HEPARIN SOD (PORCINE) 5,000 UNIT/ML 1 ML SYRINGE SUBCUT SCH ×3 (05:52→21:28)
[2018-03-10] MEDS: DEXAMETHASONE 4 MG TABLET PO SCH ×3 (05:52→17:09)
[2018-03-10 06:03] LABS: ANION GAP 14 (5-19); BLOOD UREA NITROGEN 87 mg/dL (7-20); CALCIUM 8.1 mg/dL (8.4-10.2); CARBON DIOXIDE 14 mmol/L (22-30); CHLORIDE 111 mmol/L (98-107); GLUCOSE 143 mg/dL (75-110); POTASSIUM 5.4 mmol/L (3.6-5.0); SODIUM 138.7 mmol/L (137-145)
[2018-03-10] MEDS: NORMAL SALINE 1000 ML 1,000 ML IV PRN (06:08)
--- NOTE | 2018-03-10 08:28 | PDOC PROGRESS REPORT ---
Subjective Progress Note for:: 03/10/18 Subjective:: Pt feeling better today but having hiccups, also no BM since admit, today had long discussion about next steps of care, spent >35 min in discussion Reason For Visit: ARF,SEPSIS,UTI Physical Exam Vital Signs: Temp Pulse Resp BP Pulse Ox 97.4 F 56 L 17 105/59 L 98 03/09/18 23:06 03/09/18 23:06 03/09/18 23:06 03/09/18 23:06 03/09/18 23:06 Intake & Output 03/09/18 03/10/18 03/11/18 06:59 06:59 06:59 Intake Total 2759 4983 Output Total 475 1700 Balance 2284 3283 Weight 97.6 kg 96.3 kg General appearance: PRESENT: no acute distress, well-developed, well-nourished Head exam: PRESENT: atraumatic, normocephalic Eye exam: PRESENT: conjunctiva pink, EOMI, PERRLA. ABSENT: scleral icterus Ear exam: PRESENT: normal external ear exam Mouth exam: PRESENT: moist, tongue midline Neck exam: ABSENT: carotid bruit, JVD, lymphadenopathy, thyromegaly Respiratory exam: PRESENT: clear to auscultation syed. ABSENT: rales, rhonchi, wheezes Cardiovascular exam: PRESENT: RRR. ABSENT: diastolic murmur, rubs, systolic murmur Pulses: PRESENT: normal dorsalis pedis pul Vascular exam: PRESENT: normal capillary refill GI/Abdominal exam: PRESENT: normal bowel sounds, soft. ABSENT: distended, guarding, mass, organolmegaly, rebound, tenderness Rectal exam: PRESENT: deferred Extremities exam: PRESENT: full ROM. ABSENT: calf tenderness, clubbing, pedal edema Neurological exam: PRESENT: alert, awake, oriented to person, oriented to place , oriented to time, oriented to situation, CN II-XII grossly intact. ABSENT: motor sensory deficit Psychiatric exam: PRESENT: appropriate affect, normal mood. ABSENT: homicidal ideation, suicidal ideation Skin exam: PRESENT: dry, intact, warm. ABSENT: cyanosis, rash Results Laboratory Results: 03/10/18 04:27 03/10/18 04:27 03/09/18 03/10/18 03/10/18 16:05 04:27 04:27 WBC 10.7 H RBC 3.47 L Hgb 10.4 L Hct 30.3 L MCV 87 MCH 29.9 MCHC 34.3 RDW 14.0 Plt Count 103 L Sodium 138.2 138.7 Potassium 5.4 H 5.4 H Chloride 107 111 H Carbon Dioxide 15 L 14 L Anion Gap 16 14 BUN 85 H 87 H Creatinine 3.68 H 3.39 H Est GFR ( Amer) 20 L 22 L Est GFR (Non-Af Amer) 16 L 18 L Glucose 162 H 143 H Calcium 8.6 8.1 L Magnesium 2.5 H Impressions: Renal Ultrasound 03/08/18 00:00 IMPRESSION: Suboptimal exam due to overlying bowel gas. No hydronephrosis. Limited or Localized CT 03/08/18 09:07 IMPRESSION: 1. No nephrolithiasis. Ectopic insertion of the ureters, as detailed above. 2. Diffusely sclerotic appearance of the osseous structures, concerning for metastatic disease. Pathological fracture of the posterior inferior L1 vertebral body with 8 mm of retropulsion into the central canal. 3. Cholelithiasis. 4. Prostatomegaly. 5. Splenomegaly. 6. Small hiatal hernia with mild wall thickening. Correlate with patient's endoscopy history Chest X-Ray 03/09/18 00:00 IMPRESSION: NO ACUTE RADIOGRAPHIC FINDING IN THE CHEST. Assessment & Plan - Diagnosis (1) Pathologic compression fracture of spine Qualifiers: Encounter type: subsequent encounter Is this a current diagnosis for this admission?: Yes Plan: Plan for continued hydration, awaiting PSA and Myeloma w/u (2) Acute renal failure Qualifiers: Acute renal failure type: unspecified Qualified Code(s): N17.9 - Acute kidney failure, unspecified Is this a current diagnosis for this admission?: Yes Plan: Cont hydration, improving (3) Secondary cancer of bone Is this a current diagnosis for this admission?: Yes Plan: Likely either met from solid tumor (most likely prostate) or myeloma. Awaiting improved kidney function. - Time Time Spent with patient: 35 or more minutes - Inpatient Certification Based on my medical assessment, after consideration of the patient's comorbidities, presenting symptoms, or acuity I expect that the services needed warrant INPATIENT care.: Yes Medical Necessity: Need For IV Fluids
[2018-03-10] MEDS ORDERED: POLYETHYLENE GLYCOL 3350 POWDER 17 GM/1 PACKET PO PRN ×2 (08:32→08:44)
[2018-03-10] MEDS ORDERED: SENNOSIDES/DOCUSATE 8.6-50 MG 1 EACH TABLET PO PRN (08:33)
[2018-03-10] MEDS ORDERED: BACLOFEN 10 MG TABLET PO PRN (08:34)
[2018-03-10] MEDS: INSULIN REG, HUMAN 100 UNIT/ML 3 ML VIAL (PYX) SUBCUT PRN ×4 (08:59→21:28)
[2018-03-10] MEDS ORDERED: ONDANSETRON HCL INJ/PF 4 MG/2 ML SDV IV PRN (09:00)
[2018-03-10] MEDS: CEFTRIAXONE SODIUM 1,000 MG in NORMAL SALINE 50 ML IV SCH (09:28)
[2018-03-10] MEDS ORDERED: NORMAL SALINE 1000 ML 1,000 ML IV PRN (16:37)
--- NOTE | 2018-03-10 16:37 | PDOC PROGRESS REPORT ---
Subjective Progress Note for:: 03/10/18 Subjective:: Assumed care today. Mr. Milton is a 72-year-old male who was admitted for acute renal failure and possible metastatic disease to the spine. No acute event overnight. Patient does complain that he has urinary frequency. Fever or chills. Back pain is well controlled. Reason For Visit: ARF,SEPSIS,UTI Physical Exam Vital Signs: Temp Pulse Resp BP Pulse Ox 97.4 F 57 L 16 146/61 H 98 03/10/18 12:31 03/10/18 12:31 03/10/18 12:31 03/10/18 12:31 03/10/18 12:31 Intake & Output 03/09/18 03/10/18 03/11/18 06:59 06:59 06:59 Intake Total 2759 4983 50 Output Total 475 1700 Balance 2284 3283 50 Weight 215 lb 2.738 oz 212 lb 4.882 oz General appearance: PRESENT: no acute distress, well-developed, well-nourished Head exam: PRESENT: atraumatic, normocephalic Eye exam: PRESENT: conjunctiva pink, EOMI, PERRLA. ABSENT: scleral icterus Neck exam: ABSENT: carotid bruit, JVD, lymphadenopathy, thyromegaly Respiratory exam: PRESENT: clear to auscultation syed. ABSENT: rales, rhonchi, wheezes Cardiovascular exam: PRESENT: RRR. ABSENT: diastolic murmur, rubs, systolic murmur Pulses: PRESENT: normal dorsalis pedis pul GI/Abdominal exam: PRESENT: normal bowel sounds, soft. ABSENT: distended, guarding, mass, organolmegaly, rebound, tenderness Rectal exam: PRESENT: deferred Musculoskeletal exam: PRESENT: tenderness - Mild lumbar tenderness Neurological exam: PRESENT: alert, awake, oriented to person, oriented to place , oriented to time, oriented to situation, CN II-XII grossly intact. ABSENT: motor sensory deficit Results Laboratory Results: 03/10/18 04:27 03/10/18 04:27 03/09/18 03/10/18 03/10/18 16:05 04:27 04:27 WBC 10.7 H RBC 3.47 L Hgb 10.4 L Hct 30.3 L MCV 87 MCH 29.9 MCHC 34.3 RDW 14.0 Plt Count 103 L Sodium 138.2 138.7 Potassium 5.4 H 5.4 H Chloride 107 111 H Carbon Dioxide 15 L 14 L Anion Gap 16 14 BUN 85 H 87 H Creatinine 3.68 H 3.39 H Est GFR ( Amer) 20 L 22 L Est GFR (Non-Af Amer) 16 L 18 L Glucose 162 H 143 H Calcium 8.6 8.1 L Magnesium 2.5 H Impressions: Renal Ultrasound 03/08/18 00:00 IMPRESSION: Suboptimal exam due to overlying bowel gas. No hydronephrosis. Limited or Localized CT 03/08/18 09:07 IMPRESSION: 1. No nephrolithiasis. Ectopic insertion of the ureters, as detailed above. 2. Diffusely sclerotic appearance of the osseous structures, concerning for metastatic disease. Pathological fracture of the posterior inferior L1 vertebral body with 8 mm of retropulsion into the central canal. 3. Cholelithiasis. 4. Prostatomegaly. 5. Splenomegaly. 6. Small hiatal hernia with mild wall thickening. Correlate with patient's endoscopy history Chest X-Ray 03/09/18 00:00 IMPRESSION: NO ACUTE RADIOGRAPHIC FINDING IN THE CHEST. Assessment & Plan - Diagnosis (1) Acute renal failure Qualifiers: Acute renal failure type: unspecified Qualified Code(s): N17.9 - Acute kidney failure, unspecified Is this a current diagnosis for this admission?: Yes Plan: This could be a combination of prerenal SORIN from poor oral intake and septic ATN. Creatinine is trending down. He initially came with a creatinine of 4. This has trended down to 3.6 yesterday and is now down to 3.3 today. Continue IV fluids. (2) Sepsis Qualifiers: Sepsis type: sepsis due to unspecified organism Qualified Code(s): A41.9 - Sepsis, unspecified organism Is this a current diagnosis for this admission?: Yes Plan: Separate cysts from cystitis. Patient does complain of urinary frequency which is something new to him. Urinalysis is consistent with a UTI. Initial blood culture has grown gram-positive cocci. Patient was started on Rocephin for UTI. Vancomycin was also continued for gram-positive cocci bacteremia. Patient 's renal functions need to be closely monitored as well as dosing of vancomycin due to his acute renal failure. This was discussed with the pharmacist. Blood culture results are expected to be finalized tomorrow. If patient grows MSSA, vancomycin will be immediately discontinued and will just be continued on Rocephin. (3) Pathologic compression fracture of spine Qualifiers: Encounter type: subsequent encounter Is this a current diagnosis for this admission?: Yes Plan: Patient has been started on Decadron. Oncology following. Appreciate input and recommendations. Pending PSA and myeloma workup. - Time Time Spent with patient: 25-34 minutes
[2018-03-10] MEDS: FAMOTIDINE 20 MG TABLET PO SCH (17:09)
[2018-03-10] MEDS ORDERED: VANCOMYCIN HCL 750 MG in DEXTROSE 5%-WATER 250 ML IV SCH ×2 (18:00→22:00)
[2018-03-11] MEDS: DEXAMETHASONE 4 MG TABLET PO SCH ×4 (00:14→17:24)
[2018-03-11] MEDS: HEPARIN SOD (PORCINE) 5,000 UNIT/ML 1 ML SYRINGE SUBCUT SCH ×3 (05:14→22:00)
[2018-03-11] MEDS: INSULIN REG, HUMAN 100 UNIT/ML 3 ML VIAL (PYX) SUBCUT PRN ×3 (07:24→16:30)
[2018-03-11 08:41] LABS: HEMATOCRIT 31.6 % (37.9-51.0); HEMOGLOBIN 10.8 g/dL (13.5-17.0); MEAN CORPUSCULAR HEMOGLOBIN 29.9 pg (27.0-33.4); MEAN CORPUSCULAR HGB CONC 34.3 g/dL (32.0-36.0); MEAN CORPUSCULAR VOLUME 87 fl (80-97); PLATELET COUNT 123 10^3/uL (150-450); RED BLOOD COUNT 3.62 10^6/uL (4.35-5.55); WHITE BLOOD COUNT 9.6 10^3/uL (4.0-10.5)
[2018-03-11 09:02] LABS: ALANINE AMINOTRANSFERASE 47 U/L (21-72); ALKALINE PHOSPHATASE 799 U/L (38-126); ANION GAP 13 (5-19); ASPARTATE AMINO TRANSFERASE 43 U/L (17-59); BILIRUBIN,DIRECT 0.5 mg/dL (0.0-0.4); BILIRUBIN,TOTAL 0.5 mg/dL (0.2-1.3); BLOOD UREA NITROGEN 86 mg/dL (7-20); CALCIUM 8.2 mg/dL (8.4-10.2); CARBON DIOXIDE 15 mmol/L (22-30); CHLORIDE 113 mmol/L (98-107); GLUCOSE 191 mg/dL (75-110); POTASSIUM 5.8 mmol/L (3.6-5.0); SODIUM 140.5 mmol/L (137-145); TOTAL PROTEIN 6.1 g/dL (6.3-8.2)
[2018-03-11 09:07] LABS: ABSOLUTE LYMPHOCYTES# (MANUAL) 0.8 10^3/uL (0.5-4.7); ABSOLUTE MONOCYTES # (MANUAL) 0.1 10^3/uL (0.1-1.4); ABSOLUTE NEUTROPHILS# (MANUAL) 8.7 10^3/uL (1.7-8.2); BASOPHILS % (MANUAL) 0 % (0-2); EOSINOPHILS % (MANUAL) 0 % (0-6); LYMPHOCYTES % (MANUAL) 7 % (13-45); METAMYELOCYTES % (MANUAL) 1 % (0); MONOCYTES % (MANUAL) 1 % (3-13); SEGMENTED NEUTROPHILS % (MAN) 90 % (42-78); TOTAL CELLS COUNTED 100
[2018-03-11] MEDS: CEFTRIAXONE SODIUM 1,000 MG in NORMAL SALINE 50 ML IV SCH (09:07)
[2018-03-11 09:08] LABS: PLATELET COMMENT ADEQUATE; RBC MORPHOLOGY COMMENT NORMO-CYTIC/CHROMIC; TOXIC GRANULATION SLIGHT
--- NOTE | 2018-03-11 15:08 | Progress Note ---
Provider Note Provider Note: ID Consult Note Brief note - MSSA bacteremia, community onset, unknown source. TTE report pending, repeat BCx negative x 24h. Has been on Rocephin and vancomycin empirically. Pt tolerates cephalosporins, recommend d/c vancomycin, start Ancef 2 g IV q12h instead of Rocephin. Although Rocephin offers convenience of once daily dosing and would not require renal dose adjustment, the antistaphylococcal activity of Rocephin is not optimal and outcomes tend to be better when Ancef is used for treatment for MSSA bacteremia instead. If creatinine continues to improve to estimated GFR of 30 or higher, Ancef would need to be changed to 2 g q8h IV. Anticipate that the patient will need a PICC line or tunneled CVL, but placement of this should wait until the repeat set of BCx are negative for 48h-72h. Buddy Adrian MD [facility]
[2018-03-11 15:39] LABS: A/G RATIO. 1.1 (0.7-1.7); ALBUMIN 3 2.9 g/dL (2.9-4.4); ALPHA-1-GLOBULIN 0.4 g/dL (0.0-0.4); BETA GLOBULIN 0.8 g/dL (0.7-1.3); FREE KAPPA LIGHT CHAINS 38.8 mg/L (3.3-19.4); GAMMA GLOBULINS 0.8 g/dL (0.4-1.8); IMMUNOGLOBULIN A 333 mg/dL (61-437); IMMUNOGLOBULIN G 858 mg/dL (700-1600); IMMUNOGLOBULIN M 94 mg/dL (20-172); MONOCLONAL-SPIKE Not Observed g/dL (Not Observ); PROTEIN TOTAL SERUM 5.7 g/dL (6.0-8.5)
--- NOTE | 2018-03-11 17:11 | PDOC PROGRESS REPORT ---
Subjective Progress Note for:: 03/11/18 Subjective:: Continues to improve daily, eating and drinking liquids well Reason For Visit: ARF,SEPSIS,UTI Physical Exam Vital Signs: Temp Pulse Resp BP Pulse Ox 97.7 F 65 16 120/49 L 100 03/11/18 12:00 03/11/18 12:00 03/11/18 12:00 03/11/18 12:00 03/11/18 07:20 Intake & Output 03/10/18 03/11/18 03/12/18 06:59 06:59 06:59 Intake Total 4983 2105 50 Output Total 1700 Balance 3283 2105 50 Weight 96.3 kg 97.5 kg General appearance: PRESENT: no acute distress, well-developed, well-nourished Head exam: PRESENT: atraumatic, normocephalic Eye exam: PRESENT: conjunctiva pink, EOMI, PERRLA. ABSENT: scleral icterus Ear exam: PRESENT: normal external ear exam Mouth exam: PRESENT: moist, tongue midline Neck exam: ABSENT: carotid bruit, JVD, lymphadenopathy, thyromegaly Respiratory exam: PRESENT: clear to auscultation syed. ABSENT: rales, rhonchi, wheezes Cardiovascular exam: PRESENT: RRR. ABSENT: diastolic murmur, rubs, systolic murmur Pulses: PRESENT: normal dorsalis pedis pul Vascular exam: PRESENT: normal capillary refill GI/Abdominal exam: PRESENT: normal bowel sounds, soft. ABSENT: distended, guarding, mass, organolmegaly, rebound, tenderness Rectal exam: PRESENT: deferred Extremities exam: PRESENT: full ROM. ABSENT: calf tenderness, clubbing, pedal edema Neurological exam: PRESENT: alert, awake, oriented to person, oriented to place , oriented to time, oriented to situation, CN II-XII grossly intact. ABSENT: motor sensory deficit Psychiatric exam: PRESENT: appropriate affect, normal mood. ABSENT: homicidal ideation, suicidal ideation Skin exam: PRESENT: dry, intact, warm. ABSENT: cyanosis, rash Results Laboratory Results: 03/11/18 08:27 03/11/18 08:27 03/11/18 03/11/18 08:27 08:27 WBC 9.6 RBC 3.62 L Hgb 10.8 L Hct 31.6 L MCV 87 MCH 29.9 MCHC 34.3 RDW 14.0 Plt Count 123 L Seg Neutrophils % Not Reportable Lymphocytes % Not Reportable Monocytes % Not Reportable Eosinophils % Not Reportable Basophils % Not Reportable Absolute Neutrophils Not Reportable Absolute Lymphocytes Not Reportable Absolute Monocytes Not Reportable Absolute Eosinophils Not Reportable Absolute Basophils Not Reportable Sodium 140.5 Potassium 5.8 H Chloride 113 H Carbon Dioxide 15 L Anion Gap 13 BUN 86 H Creatinine 2.98 H Est GFR ( Amer) 25 L Est GFR (Non-Af Amer) 21 L Glucose 191 H Calcium 8.2 L Total Bilirubin 0.5 AST 43 ALT 47 Alkaline Phosphatase 799 H Total Protein 6.1 L Albumin 3.0 L Impressions: Renal Ultrasound 03/08/18 00:00 IMPRESSION: Suboptimal exam due to overlying bowel gas. No hydronephrosis. Limited or Localized CT 03/08/18 09:07 IMPRESSION: 1. No nephrolithiasis. Ectopic insertion of the ureters, as detailed above. 2. Diffusely sclerotic appearance of the osseous structures, concerning for metastatic disease. Pathological fracture of the posterior inferior L1 vertebral body with 8 mm of retropulsion into the central canal. 3. Cholelithiasis. 4. Prostatomegaly. 5. Splenomegaly. 6. Small hiatal hernia with mild wall thickening. Correlate with patient's endoscopy history Chest X-Ray 03/09/18 00:00 IMPRESSION: NO ACUTE RADIOGRAPHIC FINDING IN THE CHEST. Assessment & Plan - Diagnosis (1) Pathologic compression fracture of spine Qualifiers: Encounter type: subsequent encounter Is this a current diagnosis for this admission?: Yes Plan: Plan for bx as outpt (2) Acute renal failure Qualifiers: Acute renal failure type: unspecified Qualified Code(s): N17.9 - Acute kidney failure, unspecified Is this a current diagnosis for this admission?: Yes Plan: Improved, cont to monitor, follow up CMP from am tomorrow, if cr cont to improve will d/w hospitalist on approp time for d/c (3) Secondary cancer of bone Is this a current diagnosis for this admission?: Yes Plan: Likely to be prostate ca vs myeloma, but awaiting testing that may not be back for another few days. - Time Time Spent with patient: 35 or more minutes - Inpatient Certification Based on my medical assessment, after consideration of the patient's comorbidities, presenting symptoms, or acuity I expect that the services needed warrant INPATIENT care.: Yes I certify that my determination is in accordance with my understanding of Medicare's requirements for reasonable and necessary INPATIENT services [42 CFR 412.3e].: Yes Medical Necessity: Need For IV Fluids
[2018-03-11] MEDS: TAMSULOSIN HCL 0.4 MG CAP.SR.24H PO SCH (17:24)
[2018-03-11] MEDS: FAMOTIDINE 20 MG TABLET PO SCH (17:24)
--- NOTE | 2018-03-11 20:13 | XCELERA REPORT ---
[address] [address] Transthoracic Echocardiogram Report Name: SY MONTE Age: 72 yrs Gender: Male : 1945 Patient Status: Inpatient Patient Location: [address] [place] [address] Study Date: 03/10/2018 11:20 AM Height: 71 in Weight: 215 lb BSA: 2.2 m2 Procedure: A two-dimensional transthoracic echocardiogram with color flow Doppler was performed. Study Quality: Fair. Reason For Study: Positive blood cultures-rule out endocarditis History: ENDOCARDITIS. Ordering Physician: JHON NAVAS Performed By: Mary London Interpretation Summary mend KAITLIN to be sure no vegetations. The left ventricle is normal in size. There is normal left ventricular wall thickness. LV EF is > than 65% Left ventricular systolic function is normal. The left ventricular wall motion is normal. There is no thrombus. The right ventricle is normal in size and function. The left atrium is mildly dilated. There is no evidence of mitral valve prolapse. There is no mitral valve stenosis. There is a trace amount of mitral regurgitation There is no aortic valvular vegetation. There is no aortic valve stenosis There is no LVOT obstruction. There is aortic sclerosis without aortic stenosis. No aortic regurgitation is present. There is no tricuspid stenosis. There is a trace to mild amount of tricuspid regurgitation There is mild pulmonary hypertension by echo RSVP is equal to 30 to 35 mm of Hg , with RA mean of 5 to 10. There is no tricuspid valve vegetation. The aortic root is normal size. The inferior vena cava appeared normal and decreased > 50% with respiration (RAP 5-10 mmHg) There is no pericardial effusion. mend KAITLIN to be sure no vegetations. MMode/2D Measurements & Calculations RVDd: 2.8 cm LVIDd: 5.5 cm FS: 40.4 % Ao root diam: 2.7 cm IVSd: 0.83 cm LVIDs: 3.3 cm EDV(Teich): 150.5 ml Ao root area: 5.6 cm2 LVPWd: 0.85 cm ESV(Teich): 44.3 ml LA dimension: 4.5 cm EF(Teich): 70.5 % Doppler Measurements & Calculations MV E max jonny: MV P1/2t max jonny: Ao V2 max: LV V1 max P.8 cm/sec 91.3 cm/sec 140.6 cm/sec 5.3 mmHg MV A max jonny: MV P1/2t: 80.4 msec Ao max P.9 mmHg LV V1 max: 69.1 cm/sec MVA(P1/2t): 2.7 cm2 115.0 cm/sec MV E/A: 1.3 MV dec slope: 332.5 cm/sec2 MV dec time: 0.29 sec PA V2 max: TR max jonny: MV P1/2t-pr_phl: 72.1 cm/sec 247.0 cm/sec 80.4 msec PA max PG: TR max P.4 mmHg 2.1 mmHg Left Ventricle The left ventricle is normal in size. There is normal left ventricular wall thickness. LV EF is > than 65%. Left ventricular systolic function is normal. Doppler measurements suggest normal left ventricular diastolic function. The left ventricular wall motion is normal. There is no thrombus. There is no ventricular septal defect visualized. Right Ventricle The right ventricle is normal in size and function. Atria The right atrium is normal. The left atrium is mildly dilated. The interatrial septum is intact with no evidence for an atrial septal defect. Mitral Valve There is no evidence of mitral valve prolapse. There is no vegetation seen on the mitral valve. There is no mitral valve stenosis. There is a trace amount of mitral regurgitation. Aortic Valve There is no aortic valvular vegetation. There is no aortic valve stenosis. There is no LVOT obstruction. There is aortic sclerosis without aortic stenosis. No aortic regurgitation is present. Tricuspid Valve There is no tricuspid valve vegetation. There is no tricuspid stenosis. There is a trace to mild amount of tricuspid regurgitation. There is mild pulmonary hypertension by echo. RSVP is equal to 30 to 35 mm of Hg , with RA mean of 5 to 10. Pulmonic Valve There is no pulmonic valvular stenosis. There is no pulmonic valvular regurgitation. Great Vessels The aortic root is normal size. The inferior vena cava appeared normal and decreased > 50% with respiration (RAP 5-10 mmHg). Effusions There is no pericardial effusion. : JHON NAVAS > Funmilayo Mclaughlin
[2018-03-12] MEDS: DEXAMETHASONE 4 MG TABLET PO SCH ×4 (00:20→18:01)
[2018-03-12] MEDS: HEPARIN SOD (PORCINE) 5,000 UNIT/ML 1 ML SYRINGE SUBCUT SCH ×3 (05:50→21:50)
[2018-03-12 06:56] LABS: HEMATOCRIT 31.9 % (37.9-51.0); HEMOGLOBIN 10.9 g/dL (13.5-17.0); MEAN CORPUSCULAR HEMOGLOBIN 29.8 pg (27.0-33.4); MEAN CORPUSCULAR HGB CONC 34.2 g/dL (32.0-36.0); MEAN CORPUSCULAR VOLUME 87 fl (80-97); PLATELET COUNT 124 10^3/uL (150-450); RED BLOOD COUNT 3.67 10^6/uL (4.35-5.55); RED CELL DISTRIBUTION WIDTH 13.8 % (11.5-14.0); WHITE BLOOD COUNT 7.4 10^3/uL (4.0-10.5)
[2018-03-12 07:12] LABS: ALANINE AMINOTRANSFERASE 53 U/L (21-72); ALBUMIN 3.1 g/dL (3.5-5.0); ALKALINE PHOSPHATASE 752 U/L (38-126); ANION GAP 14 (5-19); ASPARTATE AMINO TRANSFERASE 39 U/L (17-59); BILIRUBIN,DIRECT 0.4 mg/dL (0.0-0.4); BILIRUBIN,TOTAL 0.5 mg/dL (0.2-1.3); BLOOD UREA NITROGEN 79 mg/dL (7-20); CALCIUM 8.2 mg/dL (8.4-10.2); CARBON DIOXIDE 14 mmol/L (22-30); CHLORIDE 115 mmol/L (98-107); GLUCOSE 184 mg/dL (75-110); PHOSPHORUS 3.9 mg/dL (2.5-4.5); POTASSIUM 5.1 mmol/L (3.6-5.0); SODIUM 142.8 mmol/L (137-145); TOTAL PROTEIN 6.2 g/dL (6.3-8.2)
[2018-03-12] MEDS: INSULIN REG, HUMAN 100 UNIT/ML 3 ML VIAL (PYX) SUBCUT PRN ×4 (07:20→22:24)
[2018-03-12 07:33] LABS: ABSOLUTE LYMPHOCYTES# (MANUAL) 0.4 10^3/uL (0.5-4.7); ABSOLUTE MONOCYTES # (MANUAL) 0.1 10^3/uL (0.1-1.4); ABSOLUTE NEUTROPHILS# (MANUAL) 6.8 10^3/uL (1.7-8.2); BAND NEUTROPHILS % (MANUAL) 2 % (3-5); BASOPHILS % (MANUAL) 0 % (0-2); EOSINOPHILS % (MANUAL) 0 % (0-6); LYMPHOCYTES % (MANUAL) 6 % (13-45); METAMYELOCYTES % (MANUAL) 2 % (0); MONOCYTES % (MANUAL) 2 % (3-13); NUCLEATED RED BLOOD CELLS 1 /100 WBC (0); PLATELET COMMENT DECREASED; SEGMENTED NEUTROPHILS % (MAN) 88 % (42-78); TOTAL CELLS COUNTED 100
[2018-03-12 07:34] LABS: OVALOCYTES SLIGHT; POIKILOCYTOSIS SLIGHT; POLYCHROMASIA SLIGHT; TOXIC GRANULATION 1+; TOXIC VACUOLATION PRESENT
[2018-03-12] MEDS ORDERED: TRAZODONE HCL 50 MG TABLET PO PRN (08:35)
[2018-03-12] MEDS: CEFTRIAXONE SODIUM 1,000 MG in NORMAL SALINE 50 ML IV SCH (09:01)
--- NOTE | 2018-03-12 12:03 | PDOC PROGRESS REPORT ---
Subjective Progress Note for:: 03/11/18 Subjective:: This is a 72-year-old male who was admitted for acute renal failure and left lower back pain on further medication patient was found to have a pathologic fracture and oncology was consulted current impression is metastatic disease. No new No acute event overnight however patient complains that he cannot sleep very well due to frequent interruption or frequency. Patient denies any fever chills however complains of left lower back pain he says that his pain on initially was very severe however it is improving since admission his overall pain is about 7 out of 10. Patient very anxious to leave the hospital he wants to continue his care at in [place] where he lives. Reason For Visit: ARF,SEPSIS,UTI Physical Exam Vital Signs: Temp Pulse Resp BP Pulse Ox 97.7 F 65 16 120/49 L 100 03/11/18 12:00 03/11/18 12:00 03/11/18 12:00 03/11/18 12:00 03/11/18 07:20 Intake & Output 03/10/18 03/11/18 03/12/18 06:59 06:59 06:59 Intake Total 4983 2105 50 Output Total 1700 Balance 3283 2105 50 Weight 96.3 kg 97.5 kg Musculoskeletal exam: PRESENT: tenderness - Left Paraspinal Region. Results Laboratory Results: 03/11/18 08:27 03/11/18 08:27 03/11/18 03/11/18 08:27 08:27 WBC 9.6 RBC 3.62 L Hgb 10.8 L Hct 31.6 L MCV 87 MCH 29.9 MCHC 34.3 RDW 14.0 Plt Count 123 L Seg Neutrophils % Not Reportable Lymphocytes % Not Reportable Monocytes % Not Reportable Eosinophils % Not Reportable Basophils % Not Reportable Absolute Neutrophils Not Reportable Absolute Lymphocytes Not Reportable Absolute Monocytes Not Reportable Absolute Eosinophils Not Reportable Absolute Basophils Not Reportable Sodium 140.5 Potassium 5.8 H Chloride 113 H Carbon Dioxide 15 L Anion Gap 13 BUN 86 H Creatinine 2.98 H Est GFR ( Amer) 25 L Est GFR (Non-Af Amer) 21 L Glucose 191 H Calcium 8.2 L Total Bilirubin 0.5 AST 43 ALT 47 Alkaline Phosphatase 799 H Total Protein 6.1 L Albumin 3.0 L Impressions: Renal Ultrasound 03/08/18 00:00 IMPRESSION: Suboptimal exam due to overlying bowel gas. No hydronephrosis. Limited or Localized CT 03/08/18 09:07 IMPRESSION: 1. No nephrolithiasis. Ectopic insertion of the ureters, as detailed above. 2. Diffusely sclerotic appearance of the osseous structures, concerning for metastatic disease. Pathological fracture of the posterior inferior L1 vertebral body with 8 mm of retropulsion into the central canal. 3. Cholelithiasis. 4. Prostatomegaly. 5. Splenomegaly. 6. Small hiatal hernia with mild wall thickening. Correlate with patient's endoscopy history Chest X-Ray 03/09/18 00:00 IMPRESSION: NO ACUTE RADIOGRAPHIC FINDING IN THE CHEST. Assessment & Plan - Diagnosis (1) Acute renal failure Qualifiers: Acute renal failure type: unspecified Qualified Code(s): N17.9 - Acute kidney failure, unspecified Is this a current diagnosis for this admission?: Yes Plan: Likely due to underlying metastatic disease or secondary to postrenal acute kidney injury. His creatinine is trending down electrolytes are within normal limits we will continue IV fluids and monitor volume status. Patient will need outpatient nephrology follow-up and oncology follow-up (2) Diabetes mellitus type 2 in nonobese Is this a current diagnosis for this admission?: Yes Plan: On long-acting insulin will continue monitoring blood glucose level and (3) Enlarged prostate Is this a current diagnosis for this admission?: Yes Plan: We will add tamsulosin 0.1 mg daily (4) Lumbar back pain Is this a current diagnosis for this admission?: Yes Plan: Related to underlying metastatic disease we will continue supportive care (5) Sepsis Qualifiers: Sepsis type: sepsis due to unspecified organism Qualified Code(s): A41.9 - Sepsis, unspecified organism Is this a current diagnosis for this admission?: Yes Plan: Due to accessory will discontinue vancomycin and continue Serax and patient has a pending eye consult. (6) Pathologic compression fracture of spine Qualifiers: Encounter type: subsequent encounter Is this a current diagnosis for this admission?: Yes Plan: Likely due to underlying metastatic cancer will continue to [facility] oncology is on board and patient has pending multiple, multiple myeloma and PSA. Patient is very anxious to leave the hospital and continue his care in [place] where he lives. Once proper disposition has been obtained and will discharge patient to continue his care and [facility].
--- NOTE | 2018-03-12 12:55 | PDOC PROGRESS REPORT ---
Subjective Progress Note for:: 03/12/18 Subjective:: Today had long discussion w/ pt who was upset to hear about the new + cultures. We had a long discussion about this and spent about 40 min in discussion. Reason For Visit: ARF,SEPSIS,UTI Physical Exam Vital Signs: Temp Pulse Resp BP Pulse Ox 98.4 F 56 L 16 135/57 H 100 03/12/18 12:00 03/12/18 12:00 03/12/18 12:00 03/12/18 12:00 03/12/18 12:00 Intake & Output 03/11/18 03/12/18 03/13/18 06:59 06:59 06:59 Intake Total 2105 700 50 Output Total 200 Balance 2105 500 50 Weight 97.5 kg 96.2 kg General appearance: PRESENT: no acute distress, well-developed, well-nourished Head exam: PRESENT: atraumatic, normocephalic Eye exam: PRESENT: conjunctiva pink, EOMI, PERRLA. ABSENT: scleral icterus Ear exam: PRESENT: normal external ear exam Mouth exam: PRESENT: moist, tongue midline Neck exam: ABSENT: carotid bruit, JVD, lymphadenopathy, thyromegaly Respiratory exam: PRESENT: clear to auscultation syed. ABSENT: rales, rhonchi, wheezes Cardiovascular exam: PRESENT: RRR. ABSENT: diastolic murmur, rubs, systolic murmur Pulses: PRESENT: normal dorsalis pedis pul Vascular exam: PRESENT: normal capillary refill GI/Abdominal exam: PRESENT: normal bowel sounds, soft. ABSENT: distended, guarding, mass, organolmegaly, rebound, tenderness Rectal exam: PRESENT: deferred Extremities exam: PRESENT: full ROM. ABSENT: calf tenderness, clubbing, pedal edema Neurological exam: PRESENT: alert, awake, oriented to person, oriented to place , oriented to time, oriented to situation, CN II-XII grossly intact. ABSENT: motor sensory deficit Psychiatric exam: PRESENT: appropriate affect, normal mood. ABSENT: homicidal ideation, suicidal ideation Skin exam: PRESENT: dry, intact, warm. ABSENT: cyanosis, rash Results Laboratory Results: 03/12/18 06:02 03/12/18 06:02 03/12/18 03/12/18 06:02 06:02 WBC 7.4 RBC 3.67 L Hgb 10.9 L Hct 31.9 L MCV 87 MCH 29.8 MCHC 34.2 RDW 13.8 Plt Count 124 L Seg Neutrophils % Not Reportable Lymphocytes % Not Reportable Monocytes % Not Reportable Eosinophils % Not Reportable Basophils % Not Reportable Absolute Neutrophils Not Reportable Absolute Lymphocytes Not Reportable Absolute Monocytes Not Reportable Absolute Eosinophils Not Reportable Absolute Basophils Not Reportable Sodium 142.8 Potassium 5.1 H Chloride 115 H Carbon Dioxide 14 L Anion Gap 14 BUN 79 H Creatinine 2.49 H Est GFR ( Amer) 31 L Est GFR (Non-Af Amer) 26 L Glucose 184 H Calcium 8.2 L Phosphorus 3.9 Magnesium 2.6 H Total Bilirubin 0.5 AST 39 ALT 53 Alkaline Phosphatase 752 H Total Protein 6.2 L Albumin 3.1 L Impressions: Renal Ultrasound 03/08/18 00:00 IMPRESSION: Suboptimal exam due to overlying bowel gas. No hydronephrosis. Limited or Localized CT 03/08/18 09:07 IMPRESSION: 1. No nephrolithiasis. Ectopic insertion of the ureters, as detailed above. 2. Diffusely sclerotic appearance of the osseous structures, concerning for metastatic disease. Pathological fracture of the posterior inferior L1 vertebral body with 8 mm of retropulsion into the central canal. 3. Cholelithiasis. 4. Prostatomegaly. 5. Splenomegaly. 6. Small hiatal hernia with mild wall thickening. Correlate with patient's endoscopy history Chest X-Ray 03/09/18 00:00 IMPRESSION: NO ACUTE RADIOGRAPHIC FINDING IN THE CHEST. Assessment & Plan - Diagnosis (1) Pathologic compression fracture of spine Qualifiers: Encounter type: subsequent encounter Is this a current diagnosis for this admission?: Yes Plan: Plan for bx as outpt (2) Acute renal failure Qualifiers: Acute renal failure type: unspecified Qualified Code(s): N17.9 - Acute kidney failure, unspecified Is this a current diagnosis for this admission?: Yes Plan: Improving (3) Secondary cancer of bone Is this a current diagnosis for this admission?: Yes Plan: Awaiting labs to see what direction to go, but ultimately bx will be needed (4) Bacteremia Is this a current diagnosis for this admission?: Yes Plan: Staph aureas bacteremia, now x 4 sets blood cx, repeated blood culture again. - Time Time Spent with patient: 35 or more minutes - Inpatient Certification Based on my medical assessment, after consideration of the patient's comorbidities, presenting symptoms, or acuity I expect that the services needed warrant INPATIENT care.: Yes I certify that my determination is in accordance with my understanding of Medicare's requirements for reasonable and necessary INPATIENT services [42 CFR 412.3e].: Yes Medical Necessity: Need For IV Fluids, Need for IV Antibiotics
[2018-03-12 18:00] LABS: KAPPA LAMBDA RATIO 1.44 (0.26-1.65)
[2018-03-12 18:01] LABS: PSA % FREE >.6 % (.); PSA FREE >50.00 ng/mL
[2018-03-12] MEDS: FAMOTIDINE 20 MG TABLET PO SCH (18:01)
[2018-03-12] MEDS: TAMSULOSIN HCL 0.4 MG CAP.SR.24H PO SCH (18:01)
[2018-03-12 19:20] LABS: VANCOMYCIN,TROUGH 5.9 ug/mL (5.0-20.0)
--- NOTE | 2018-03-12 20:41 | PDOC PROGRESS REPORT ---
Subjective Progress Note for:: 03/12/18 Subjective:: This is a 72-year-old male who was admitted for acute renal failure and left lower back pain on further medication patient was found to have a pathologic fracture and oncology was consulted current impression is metastatic disease. No new No acute event overnight however patient complains that he cannot sleep very well due to frequent interruption or frequency. Patient denies any fever chills however complains of left lower back pain he says that his pain on initially was very severe however it is improving since admission his overall pain is about 7 out of 10. Patient very anxious to leave the hospital he wants to continue his care at in [place] where he lives. Reason For Visit: ARF,SEPSIS,UTI Physical Exam Vital Signs: Temp Pulse Resp BP Pulse Ox 97.7 F 55 L 15 147/62 H 100 03/12/18 19:29 03/12/18 19:29 03/12/18 19:29 03/12/18 19:29 03/12/18 19:29 Intake & Output 03/11/18 03/12/18 03/13/18 06:59 06:59 06:59 Intake Total 2105 700 1310 Output Total 200 Balance 2105 500 1310 Weight 97.5 kg 96.2 kg General appearance: PRESENT: no acute distress, well-developed, well-nourished Head exam: PRESENT: atraumatic, normocephalic Eye exam: PRESENT: conjunctiva pink, EOMI, PERRLA. ABSENT: scleral icterus Ear exam: PRESENT: normal external ear exam Mouth exam: PRESENT: moist, tongue midline Neck exam: ABSENT: carotid bruit, JVD, lymphadenopathy, thyromegaly Respiratory exam: PRESENT: clear to auscultation syed. ABSENT: rales, rhonchi, wheezes Cardiovascular exam: PRESENT: RRR. ABSENT: diastolic murmur, rubs, systolic murmur Pulses: PRESENT: normal dorsalis pedis pul Vascular exam: PRESENT: normal capillary refill GI/Abdominal exam: PRESENT: normal bowel sounds, soft. ABSENT: distended, guarding, mass, organolmegaly, rebound, tenderness Rectal exam: PRESENT: deferred Extremities exam: PRESENT: full ROM. ABSENT: calf tenderness, clubbing, pedal edema Neurological exam: PRESENT: alert, awake, oriented to person, oriented to place , oriented to time, oriented to situation, CN II-XII grossly intact. ABSENT: motor sensory deficit Psychiatric exam: PRESENT: appropriate affect, normal mood. ABSENT: homicidal ideation, suicidal ideation Skin exam: PRESENT: dry, intact, warm. ABSENT: cyanosis, rash Results Laboratory Results: 03/12/18 06:02 03/12/18 06:02 03/10/18 03/12/18 03/12/18 04:27 06:02 06:02 WBC 7.4 RBC 3.67 L Hgb 10.9 L Hct 31.9 L MCV 87 MCH 29.8 MCHC 34.2 RDW 13.8 Plt Count 124 L Seg Neutrophils % Not Reportable Lymphocytes % Not Reportable Monocytes % Not Reportable Eosinophils % Not Reportable Basophils % Not Reportable Absolute Neutrophils Not Reportable Absolute Lymphocytes Not Reportable Absolute Monocytes Not Reportable Absolute Eosinophils Not Reportable Absolute Basophils Not Reportable Sodium 142.8 Potassium 5.1 H Chloride 115 H Carbon Dioxide 14 L Anion Gap 14 BUN 79 H Creatinine 2.49 H Est GFR ( Amer) 31 L Est GFR (Non-Af Amer) 26 L Glucose 184 H Calcium 8.2 L Phosphorus 3.9 Magnesium 2.6 H Total Bilirubin 0.5 AST 39 ALT 53 Alkaline Phosphatase 752 H Total Protein 5.7 L 6.2 L Albumin 2.9 3.1 L Impressions: Renal Ultrasound 03/08/18 00:00 IMPRESSION: Suboptimal exam due to overlying bowel gas. No hydronephrosis. Limited or Localized CT 03/08/18 09:07 IMPRESSION: 1. No nephrolithiasis. Ectopic insertion of the ureters, as detailed above. 2. Diffusely sclerotic appearance of the osseous structures, concerning for metastatic disease. Pathological fracture of the posterior inferior L1 vertebral body with 8 mm of retropulsion into the central canal. 3. Cholelithiasis. 4. Prostatomegaly. 5. Splenomegaly. 6. Small hiatal hernia with mild wall thickening. Correlate with patient's endoscopy history Chest X-Ray 03/09/18 00:00 IMPRESSION: NO ACUTE RADIOGRAPHIC FINDING IN THE CHEST. Assessment & Plan - Diagnosis (1) Acute renal failure Qualifiers: Acute renal failure type: unspecified Qualified Code(s): N17.9 - Acute kidney failure, unspecified Is this a current diagnosis for this admission?: Yes Plan: Likely due to underlying metastatic disease or secondary to postrenal acute kidney injury. His creatinine is trending down electrolytes are within normal limits we will continue IV fluids and monitor volume status. Patient will need outpatient nephrology follow-up and oncology follow-up (2) Diabetes mellitus type 2 in nonobese Is this a current diagnosis for this admission?: Yes Plan: On long-acting insulin will continue monitoring blood glucose level and (3) Enlarged prostate Is this a current diagnosis for this admission?: Yes Plan: We will add tamsulosin 0.1 mg daily (4) Lumbar back pain Is this a current diagnosis for this admission?: Yes Plan: Related to underlying metastatic disease we will continue supportive care (5) Sepsis Qualifiers: Sepsis type: methicillin resistant Staphylococcus aureus Qualified Code(s) : A41.02 - Sepsis due to Methicillin resistant Staphylococcus aureus Is this a current diagnosis for this admission?: Yes Plan: Likely due to MSSA. Vancomycin was discontinued and ceftriaxone was started. Patient had another blood culture positive on 03/10/2018 grams positive cocci in cluster however sensitivity still pending. ID was consulted and the recommendation was to send patient with IV antibiotics of 4-6 weeks duration either Ancef or daptomycin. The plan was to place a PICC line after 48 hours of negative blood cultures. However on 03/10/2018 and a blood another blood culture became positive which showed gram-positive cocci in clusters no sensitivity available. PICC line placement was delayed for Saturday if blood culture stays positive for the next 48 hours. (6) Pathologic compression fracture of spine Qualifiers: Encounter type: subsequent encounter Is this a current diagnosis for this admission?: Yes Plan: Likely due to underlying metastatic cancer. Oncology is on board and patient has pending multiple, multiple myeloma workup and PSA. Please refer to oncology note
[2018-03-13 06:34] LABS: ALANINE AMINOTRANSFERASE 51 U/L (21-72); ALBUMIN 2.8 g/dL (3.5-5.0); ALKALINE PHOSPHATASE 622 U/L (38-126); ANION GAP 14 (5-19); ASPARTATE AMINO TRANSFERASE 36 U/L (17-59); BILIRUBIN,DIRECT 0.3 mg/dL (0.0-0.4); BILIRUBIN,TOTAL 0.4 mg/dL (0.2-1.3); BLOOD UREA NITROGEN 68 mg/dL (7-20); CALCIUM 8.2 mg/dL (8.4-10.2); CARBON DIOXIDE 11 mmol/L (22-30); CHLORIDE 118 mmol/L (98-107); GLUCOSE 195 mg/dL (75-110); POTASSIUM 5.3 mmol/L (3.6-5.0); SODIUM 142.6 mmol/L (137-145); TOTAL PROTEIN 5.7 g/dL (6.3-8.2)
[2018-03-13 06:37] LABS: ABSOLUTE LYMPHOCYTES (AUTO) 0.5 10^3/uL (0.5-4.7); ABSOLUTE MONOCYTES (AUTO) 0.4 10^3/uL (0.1-1.4); ABSOLUTE NEUT (AUTO) 6.8 10^3/uL (1.7-8.2); HEMATOCRIT 30.2 % (37.9-51.0); HEMOGLOBIN 10.6 g/dL (13.5-17.0); LYMPHOCYTES % (AUTO) 6.8 % (13-45); MEAN CORPUSCULAR HEMOGLOBIN 30.5 pg (27.0-33.4); MEAN CORPUSCULAR HGB CONC 35.2 g/dL (32.0-36.0); MEAN CORPUSCULAR VOLUME 87 fl (80-97); MONOCYTES % (AUTO) 5.2 % (3-13); PLATELET COUNT 115 10^3/uL (150-450); RED BLOOD COUNT 3.49 10^6/uL (4.35-5.55); RED CELL DISTRIBUTION WIDTH 13.7 % (11.5-14.0); TOTAL CELLS COUNTED % (AUTO) 100 %; WHITE BLOOD COUNT 7.7 10^3/uL (4.0-10.5)
[2018-03-13] MEDS: HEPARIN SOD (PORCINE) 5,000 UNIT/ML 1 ML SYRINGE SUBCUT SCH ×3 (06:43→22:25)
[2018-03-13] MEDS: DEXAMETHASONE 4 MG TABLET PO SCH ×5 (06:43→23:19)
[2018-03-13] MEDS: INSULIN REG, HUMAN 100 UNIT/ML 3 ML VIAL (PYX) SUBCUT PRN ×3 (07:41→15:49)
--- NOTE | 2018-03-13 08:50 | PDOC PROGRESS REPORT ---
Subjective Progress Note for:: 03/13/18 Subjective:: No acute events overnight, PSAs back with a number of over 8000, today we had discussions on the implications of this. Reason For Visit: ARF,SEPSIS,UTI Physical Exam Vital Signs: Temp Pulse Resp BP Pulse Ox 97.1 F 51 L 16 133/92 H 100 03/13/18 08:00 03/13/18 08:00 03/13/18 08:00 03/13/18 08:00 03/13/18 08:00 Intake & Output 03/12/18 03/13/18 03/14/18 06:59 06:59 06:59 Intake Total 700 1750 Output Total 200 Balance 500 1750 Weight 96.2 kg 96.4 kg General appearance: PRESENT: no acute distress, well-developed, well-nourished Head exam: PRESENT: atraumatic, normocephalic Eye exam: PRESENT: conjunctiva pink, EOMI, PERRLA. ABSENT: scleral icterus Ear exam: PRESENT: normal external ear exam Mouth exam: PRESENT: moist, tongue midline Neck exam: ABSENT: carotid bruit, JVD, lymphadenopathy, thyromegaly Respiratory exam: PRESENT: clear to auscultation syed. ABSENT: rales, rhonchi, wheezes Cardiovascular exam: PRESENT: RRR. ABSENT: diastolic murmur, rubs, systolic murmur Pulses: PRESENT: normal dorsalis pedis pul Vascular exam: PRESENT: normal capillary refill GI/Abdominal exam: PRESENT: normal bowel sounds, soft. ABSENT: distended, guarding, mass, organolmegaly, rebound, tenderness Rectal exam: PRESENT: deferred Extremities exam: PRESENT: full ROM. ABSENT: calf tenderness, clubbing, pedal edema Neurological exam: PRESENT: alert, awake, oriented to person, oriented to place , oriented to time, oriented to situation, CN II-XII grossly intact. ABSENT: motor sensory deficit Psychiatric exam: PRESENT: appropriate affect, normal mood. ABSENT: homicidal ideation, suicidal ideation Skin exam: PRESENT: dry, intact, warm. ABSENT: cyanosis, rash Results Laboratory Results: 03/13/18 05:32 03/13/18 05:32 03/10/18 03/13/18 03/13/18 04:27 05:32 05:32 WBC 7.7 RBC 3.49 L Hgb 10.6 L Hct 30.2 L MCV 87 MCH 30.5 MCHC 35.2 RDW 13.7 Plt Count 115 L Seg Neutrophils % 88.0 H Lymphocytes % 6.8 L Monocytes % 5.2 Eosinophils % 0.0 Basophils % 0.0 Absolute Neutrophils 6.8 Absolute Lymphocytes 0.5 Absolute Monocytes 0.4 Absolute Eosinophils 0.0 Absolute Basophils 0.0 Sodium 142.6 Potassium 5.3 H Chloride 118 H Carbon Dioxide 11 L Anion Gap 14 BUN 68 H Creatinine 2.21 H Est GFR ( Amer) 36 L Est GFR (Non-Af Amer) 30 L Glucose 195 H Calcium 8.2 L Total Bilirubin 0.4 AST 36 ALT 51 Alkaline Phosphatase 622 H Total Protein 5.7 L 5.7 L Albumin 2.9 2.8 L Impressions: Renal Ultrasound 03/08/18 00:00 IMPRESSION: Suboptimal exam due to overlying bowel gas. No hydronephrosis. Limited or Localized CT 03/08/18 09:07 IMPRESSION: 1. No nephrolithiasis. Ectopic insertion of the ureters, as detailed above. 2. Diffusely sclerotic appearance of the osseous structures, concerning for metastatic disease. Pathological fracture of the posterior inferior L1 vertebral body with 8 mm of retropulsion into the central canal. 3. Cholelithiasis. 4. Prostatomegaly. 5. Splenomegaly. 6. Small hiatal hernia with mild wall thickening. Correlate with patient's endoscopy history Chest X-Ray 03/09/18 00:00 IMPRESSION: NO ACUTE RADIOGRAPHIC FINDING IN THE CHEST. Assessment & Plan - Diagnosis (1) Pathologic compression fracture of spine Qualifiers: Encounter type: subsequent encounter Is this a current diagnosis for this admission?: Yes Plan: Continue with steroids (2) Acute renal failure Qualifiers: Acute renal failure type: unspecified Qualified Code(s): N17.9 - Acute kidney failure, unspecified Is this a current diagnosis for this admission?: Yes Plan: Proved, continue hydration (3) Secondary cancer of bone Is this a current diagnosis for this admission?: Yes Plan: Secondary to prostate cancer, see plan below (4) Bacteremia Is this a current diagnosis for this admission?: Yes Plan: MSSA, continue with antibiotics, awaiting repeat cultures, appreciate ID help. (5) Prostate cancer metastatic to bone Is this a current diagnosis for this admission?: Yes Plan: Today we had a long discussion about the prostate cancer, the next step of care once kidney function is appropriate as well as we are sure the infection is cleared, would be consideration of diagnostic tests to include MRI of the total spine, bone scan, CT of the chest abdomen pelvis with contrast. Thereafter the decision would need to be made if a bone area could be biopsied versus prostate biopsy. We discussed treatment options briefly and discussed that the options are wide and survival can be prolonged by a great deal with appropriate management and response to therapy. We have identified an oncologist for him which I will send information and communicate to, Dr. Jovany Templeton of [place] [facility]. Also there is a food mixer repairer to Dr. Cervantes, who is a close family friend, and I discussed his case with him and I will send and fax him information. He could be a point of contact there and also could see him as a patient to help manage the infection as an outpatient. Today spent greater than 45 minutes in discussion and coordination of care. - Time Time Spent with patient: 35 or more minutes - Inpatient Certification Based on my medical assessment, after consideration of the patient's comorbidities, presenting symptoms, or acuity I expect that the services needed warrant INPATIENT care.: Yes I certify that my determination is in accordance with my understanding of Medicare's requirements for reasonable and necessary INPATIENT services [42 CFR 412.3e].: Yes Medical Necessity: Need For IV Fluids, Need for IV Antibiotics
[2018-03-13] MEDS: CEFTRIAXONE SODIUM 1,000 MG in NORMAL SALINE 50 ML IV SCH (09:29)
[2018-03-13] MEDS ORDERED: SODIUM POLYSTYRENE SULFONATE 15 GM/60 ML ONE (13:32)
[2018-03-13] MEDS: SODIUM POLYSTYRENE SULFONATE 15 GM/60 ML PO SCH (13:37)
[2018-03-13] MEDS ORDERED: CALCIUM GLUCONATE 1000 MG/10 ML INJ IV ONE (14:00)
[2018-03-13] MEDS ORDERED: IPRATROPIUM/ALBUTEROL 0.5-2.5 MG/3 ML AMPUL NEB ONE (14:00)
--- NOTE | 2018-03-13 14:56 | PDOC PROGRESS REPORT ---
Subjective Progress Note for:: 03/13/18 Subjective:: No acute events overnight patient has had a bowel movement patient said he was able to have a better night and he had 6 better sleep than the previous nice. Patient had elevated PSA and hematology oncology has been having discussion about the continuation of care with the patient. Please refer to oncology notes. Patient denies any fever chills nausea vomiting chest pain shortness of breath abdominal pain diarrhea constipation or any urinary symptoms. Reason For Visit: ARF,SEPSIS,UTI Physical Exam Vital Signs: Temp Pulse Resp BP Pulse Ox 97.6 F 52 L 16 139/60 H 100 03/13/18 12:00 03/13/18 12:00 03/13/18 12:00 03/13/18 12:00 03/13/18 12:00 Intake & Output 03/12/18 03/13/18 03/14/18 06:59 06:59 06:59 Intake Total 700 1750 384 Output Total 200 Balance 500 1750 384 Weight 96.2 kg 96.4 kg General appearance: PRESENT: no acute distress, well-developed, well-nourished Head exam: PRESENT: atraumatic, normocephalic Eye exam: PRESENT: conjunctiva pink, EOMI, PERRLA. ABSENT: scleral icterus Ear exam: PRESENT: normal external ear exam Mouth exam: PRESENT: moist, tongue midline Neck exam: ABSENT: carotid bruit, JVD, lymphadenopathy, thyromegaly Respiratory exam: PRESENT: clear to auscultation syed. ABSENT: rales, rhonchi, wheezes Cardiovascular exam: PRESENT: RRR. ABSENT: diastolic murmur, rubs, systolic murmur Pulses: PRESENT: normal dorsalis pedis pul Vascular exam: PRESENT: normal capillary refill GI/Abdominal exam: PRESENT: normal bowel sounds, soft. ABSENT: distended, guarding, mass, organolmegaly, rebound, tenderness Rectal exam: PRESENT: deferred Extremities exam: PRESENT: full ROM. ABSENT: calf tenderness, clubbing, pedal edema Neurological exam: PRESENT: alert, awake, oriented to person, oriented to place , oriented to time, oriented to situation, CN II-XII grossly intact. ABSENT: motor sensory deficit Psychiatric exam: PRESENT: appropriate affect, normal mood. ABSENT: homicidal ideation, suicidal ideation Skin exam: PRESENT: dry, intact, warm. ABSENT: cyanosis, rash Results Laboratory Results: 03/13/18 05:32 03/13/18 05:32 03/10/18 03/13/18 03/13/18 04:27 05:32 05:32 WBC 7.7 RBC 3.49 L Hgb 10.6 L Hct 30.2 L MCV 87 MCH 30.5 MCHC 35.2 RDW 13.7 Plt Count 115 L Seg Neutrophils % 88.0 H Lymphocytes % 6.8 L Monocytes % 5.2 Eosinophils % 0.0 Basophils % 0.0 Absolute Neutrophils 6.8 Absolute Lymphocytes 0.5 Absolute Monocytes 0.4 Absolute Eosinophils 0.0 Absolute Basophils 0.0 Sodium 142.6 Potassium 5.3 H Chloride 118 H Carbon Dioxide 11 L Anion Gap 14 BUN 68 H Creatinine 2.21 H Est GFR ( Amer) 36 L Est GFR (Non-Af Amer) 30 L Glucose 195 H Calcium 8.2 L Total Bilirubin 0.4 AST 36 ALT 51 Alkaline Phosphatase 622 H Total Protein 5.7 L 5.7 L Albumin 2.9 2.8 L 03/10/18 12:44 Blood Blood Culture - Final Staphylococcus Aureus Impressions: Renal Ultrasound 03/08/18 00:00 IMPRESSION: Suboptimal exam due to overlying bowel gas. No hydronephrosis. Limited or Localized CT 03/08/18 09:07 IMPRESSION: 1. No nephrolithiasis. Ectopic insertion of the ureters, as detailed above. 2. Diffusely sclerotic appearance of the osseous structures, concerning for metastatic disease. Pathological fracture of the posterior inferior L1 vertebral body with 8 mm of retropulsion into the central canal. 3. Cholelithiasis. 4. Prostatomegaly. 5. Splenomegaly. 6. Small hiatal hernia with mild wall thickening. Correlate with patient's endoscopy history Chest X-Ray 03/09/18 00:00 IMPRESSION: NO ACUTE RADIOGRAPHIC FINDING IN THE CHEST. Assessment & Plan - Diagnosis (1) Bacteremia Is this a current diagnosis for this admission?: Yes Plan: Repeat blood cultures have been negative. Switch to Ancef as per ID recommendation. If blood cultures negative for 48 hours we will discuss tarts PICC line switch antibiotics to daptomycin and discharge patient home patient wants to continue his care at [place] where he lives patient. (2) Acute renal failure Qualifiers: Acute renal failure type: unspecified Qualified Code(s): N17.9 - Acute kidney failure, unspecified Is this a current diagnosis for this admission?: Yes Plan: Likely due to underlying metastatic disease or secondary to postrenal acute kidney injury. His creatinine is trending down electrolytes are within normal limits we will continue IV fluids and monitor volume status. Patient will need outpatient nephrology follow-up and oncology follow-up (3) Diabetes mellitus type 2 in nonobese Is this a current diagnosis for this admission?: Yes Plan: On long-acting insulin will continue monitoring blood glucose level and (4) Lumbar back pain Is this a current diagnosis for this admission?: Yes Plan: Related to underlying metastatic disease we will continue supportive care (5) Pathologic compression fracture of spine Qualifiers: Encounter type: subsequent encounter Is this a current diagnosis for this admission?: Yes Plan: Likely due to underlying metastatic cancer. Oncology is on board and patient has pending multiple, multiple myeloma workup and PSA. Please refer to oncology note (6) Prostate cancer metastatic to bone Is this a current diagnosis for this admission?: Yes Plan: Oncologist on board. Will follow up recommendation. Please refer to oncology notes. (7) Hyperkalemia Is this a current diagnosis for this admission?: Yes Plan: Most likely due to a Chiari. EKG negative for any T-wave changes. Patient was given calcium gluconate neb treatment and is started on Kayexalate. CMP for tomorrow
[2018-03-13] MEDS: TAMSULOSIN HCL 0.4 MG CAP.SR.24H PO SCH ×2 (17:27→17:32)
[2018-03-13] MEDS: FAMOTIDINE 20 MG TABLET PO SCH (17:27)
--- NOTE | 2018-03-13 20:41 | EKG REPORT ---
SEVERITY:- BORDERLINE ECG - SINUS RHYTHM LOW VOLTAGE THROUGHOUT : Confirmed by: Linda Michelle 13-Mar-2018 20:40:57
[2018-03-13] MEDS: CEFAZOLIN 2 GM/D5W RTU 2 GM/50 ML RTUPB IV SCH (22:42)
[2018-03-14 05:44] LABS: HEMATOCRIT 33.6 % (37.9-51.0); HEMOGLOBIN 11.5 g/dL (13.5-17.0); MEAN CORPUSCULAR HEMOGLOBIN 30.3 pg (27.0-33.4); MEAN CORPUSCULAR HGB CONC 34.1 g/dL (32.0-36.0); MEAN CORPUSCULAR VOLUME 89 fl (80-97); PLATELET COUNT 125 10^3/uL (150-450); RED BLOOD COUNT 3.78 10^6/uL (4.35-5.55); RED CELL DISTRIBUTION WIDTH 14.1 % (11.5-14.0); WHITE BLOOD COUNT 9.7 10^3/uL (4.0-10.5)
[2018-03-14] MEDS: DEXAMETHASONE 4 MG TABLET PO SCH ×3 (05:59→19:16)
[2018-03-14 06:00] LABS: ALANINE AMINOTRANSFERASE 62 U/L (21-72); ALKALINE PHOSPHATASE 583 U/L (38-126); ANION GAP 12 (5-19); ASPARTATE AMINO TRANSFERASE 47 U/L (17-59); BILIRUBIN,DIRECT 0.3 mg/dL (0.0-0.4); BILIRUBIN,TOTAL 0.4 mg/dL (0.2-1.3); BLOOD UREA NITROGEN 61 mg/dL (7-20); CALCIUM 8.2 mg/dL (8.4-10.2); CARBON DIOXIDE 16 mmol/L (22-30); CHLORIDE 118 mmol/L (98-107); GLUCOSE 186 mg/dL (75-110); PHOSPHORUS 4.6 mg/dL (2.5-4.5); POTASSIUM 5.2 mmol/L (3.6-5.0); SODIUM 145.7 mmol/L (137-145); TOTAL PROTEIN 6.1 g/dL (6.3-8.2)
[2018-03-14] MEDS: HEPARIN SOD (PORCINE) 5,000 UNIT/ML 1 ML SYRINGE SUBCUT SCH ×3 (06:01→21:51)
[2018-03-14 06:37] LABS: ABSOLUTE LYMPHOCYTES# (MANUAL) 0.5 10^3/uL (0.5-4.7); ABSOLUTE MONOCYTES # (MANUAL) 0.4 10^3/uL (0.1-1.4); ABSOLUTE NEUTROPHILS# (MANUAL) 8.8 10^3/uL (1.7-8.2); BAND NEUTROPHILS % (MANUAL) 3 % (3-5); BASOPHILS % (MANUAL) 0 % (0-2); EOSINOPHILS % (MANUAL) 0 % (0-6); LYMPHOCYTES % (MANUAL) 5 % (13-45); MONOCYTES % (MANUAL) 4 % (3-13); SEGMENTED NEUTROPHILS % (MAN) 88 % (42-78); TOTAL CELLS COUNTED 100
[2018-03-14 06:38] LABS: ANISOCYTOSIS SLIGHT; PLATELET COMMENT DECREASED; POLYCHROMASIA SLIGHT
[2018-03-14] MEDS: INSULIN REG, HUMAN 100 UNIT/ML 3 ML VIAL (PYX) SUBCUT PRN ×2 (07:56→12:10)
--- NOTE | 2018-03-14 08:54 | PDOC PROGRESS REPORT ---
Subjective Progress Note for:: 03/14/18 Subjective:: No acute events Reason For Visit: ARF,SEPSIS,UTI Physical Exam Vital Signs: Temp Pulse Resp BP Pulse Ox 97.9 F 105 H 17 150/64 H 100 03/14/18 08:00 03/14/18 08:00 03/14/18 08:00 03/14/18 08:00 03/14/18 08:00 Intake & Output 03/13/18 03/14/18 03/15/18 06:59 06:59 06:59 Intake Total 1750 844 Balance 1750 844 Weight 96.4 kg 102.2 kg General appearance: PRESENT: no acute distress, well-developed, well-nourished Head exam: PRESENT: atraumatic, normocephalic Eye exam: PRESENT: conjunctiva pink, EOMI, PERRLA. ABSENT: scleral icterus Ear exam: PRESENT: normal external ear exam Mouth exam: PRESENT: moist, tongue midline Neck exam: ABSENT: carotid bruit, JVD, lymphadenopathy, thyromegaly Respiratory exam: PRESENT: clear to auscultation syed. ABSENT: rales, rhonchi, wheezes Cardiovascular exam: PRESENT: RRR. ABSENT: diastolic murmur, rubs, systolic murmur Pulses: PRESENT: normal dorsalis pedis pul Vascular exam: PRESENT: normal capillary refill GI/Abdominal exam: PRESENT: normal bowel sounds, soft. ABSENT: distended, guarding, mass, organolmegaly, rebound, tenderness Rectal exam: PRESENT: deferred Extremities exam: PRESENT: full ROM. ABSENT: calf tenderness, clubbing, pedal edema Neurological exam: PRESENT: alert, awake, oriented to person, oriented to place , oriented to time, oriented to situation, CN II-XII grossly intact. ABSENT: motor sensory deficit Psychiatric exam: PRESENT: appropriate affect, normal mood. ABSENT: homicidal ideation, suicidal ideation Skin exam: PRESENT: dry, intact, warm. ABSENT: cyanosis, rash Results Laboratory Results: 03/14/18 05:19 03/14/18 05:19 03/14/18 03/14/18 05:19 05:19 WBC 9.7 RBC 3.78 L Hgb 11.5 L Hct 33.6 L MCV 89 MCH 30.3 MCHC 34.1 RDW 14.1 H Plt Count 125 L Seg Neutrophils % Not Reportable Lymphocytes % Not Reportable Monocytes % Not Reportable Eosinophils % Not Reportable Basophils % Not Reportable Absolute Neutrophils Not Reportable Absolute Lymphocytes Not Reportable Absolute Monocytes Not Reportable Absolute Eosinophils Not Reportable Absolute Basophils Not Reportable Sodium 145.7 H Potassium 5.2 H Chloride 118 H Carbon Dioxide 16 L Anion Gap 12 BUN 61 H Creatinine 2.12 H Est GFR ( Amer) 38 L Est GFR (Non-Af Amer) 31 L Glucose 186 H Calcium 8.2 L Phosphorus 4.6 H Magnesium 2.4 H Total Bilirubin 0.4 AST 47 ALT 62 Alkaline Phosphatase 583 H Total Protein 6.1 L Albumin 3.0 L 03/10/18 12:35 Blood Blood Culture - Final Staphylococcus Aureus 03/10/18 12:44 Blood Blood Culture - Final Staphylococcus Aureus Impressions: Renal Ultrasound 03/08/18 00:00 IMPRESSION: Suboptimal exam due to overlying bowel gas. No hydronephrosis. Limited or Localized CT 03/08/18 09:07 IMPRESSION: 1. No nephrolithiasis. Ectopic insertion of the ureters, as detailed above. 2. Diffusely sclerotic appearance of the osseous structures, concerning for metastatic disease. Pathological fracture of the posterior inferior L1 vertebral body with 8 mm of retropulsion into the central canal. 3. Cholelithiasis. 4. Prostatomegaly. 5. Splenomegaly. 6. Small hiatal hernia with mild wall thickening. Correlate with patient's endoscopy history Chest X-Ray 03/09/18 00:00 IMPRESSION: NO ACUTE RADIOGRAPHIC FINDING IN THE CHEST. Assessment & Plan - Diagnosis (1) Pathologic compression fracture of spine Qualifiers: Encounter type: subsequent encounter Is this a current diagnosis for this admission?: Yes Plan: Secondary to prostate cancer, further workup will be done outside (2) Acute renal failure Qualifiers: Acute renal failure type: unspecified Qualified Code(s): N17.9 - Acute kidney failure, unspecified Is this a current diagnosis for this admission?: Yes Plan: Improved (3) Secondary cancer of bone Is this a current diagnosis for this admission?: Yes Plan: Further workup as an outpatient (4) Bacteremia Is this a current diagnosis for this admission?: Yes Plan: I have asked infectious disease to weigh in on him, awaiting final cultures (5) Prostate cancer metastatic to bone Is this a current diagnosis for this admission?: Yes Plan: Further workup as an outpatient, coordinating care through office, spend greater than 35 minutes in discussion and coordination of care - Time Time Spent with patient: 35 or more minutes
[2018-03-14] MEDS: SODIUM POLYSTYRENE SULFONATE 15 GM/60 ML PO SCH (12:17)
[2018-03-14] MEDS: DAPTOMYCIN 600 MG in NORMAL SALINE 50 ML IV SCH (13:20)
--- NOTE | 2018-03-14 19:02 | Operative Report ---
Operative Report DATE OF SURGERY: 03/14/18 PREOPERATIVE DIAGNOSIS: 1. Gram-positive bacteremia. 2. Metastatic prostatic carcinoma to bone POSTOPERATIVE DIAGNOSIS: Same with incomplete thrombosis of right basilic vein OPERATION: 1. Focused ultrasound of the left upper extremity venous anatomy. 2. Focused ultrasound of the right upper extremity venous anatomy SURGEON: JARON BARTON ANESTHESIA: Other - None TISSUE REMOVED OR ALTERED: None COMPLICATIONS: None ESTIMATED BLOOD LOSS: None INTRAOPERATIVE FINDINGS: See below PROCEDURE: Patient was brought from the floor to the recovery room in anticipation of placing a PICC line. The left upper extremity was examined using a variable frequency linear transducer with a tourniquet placed on the proximal upper arm. Scanner was used to scan the left basilic left brachial and left cephalic veins. The brachial vein was small and impaired in areas; the cephalic and basilic veins were both very small and felt to be unsuitable for PICC line cannulation. The right upper extremity was therefore assessed with a variable frequency linear transducer. Tourniquet placed on the right upper arm, gel placed on the skin, and the right upper extremity scan. The cephalic vein was of mild to moderate size, compressible and potentially suitable for cannulation. However the basilic vein was scanned throughout several areas of the upper arm noted to have incomplete compression hose consistent with partial thrombosis. For this reason I did not feel PICC line placement in the right upper extremity would be appropriate in this patient with metastatic prostate cancer and partial thrombosis of the basilic vein. Plan: 1. The the above situation was discussed with the anesthesia staff. We suggested placing a Wallace catheter and the patient however he had the several hours prior and therefore would need to be n.p.o. for 6 more hours, putting the potential start time at 10 PM on a Saturday night at [facility]. I did not feel this was appropriate use of resources. 2. The patient remains afebrile, hemodynamic stable. He is anxious to get back to [place], [place] and has flight out at 6:45 in the morning. I discussed the patient's care with the hospitalist as well as the medical oncologist. The consensus remains to place a long-term IV access for intravenous antibiotics for management of MSSA sepsis. 3. Therefore we will return the patient to the floor, keep him n.p.o. after midnight, and plan to place a Wallace catheter in 1 of the central veins in the morning 08:00, Saturday. This was explained to the patient, he expresses understanding and agrees to proceed.
[2018-03-14] MEDS: TAMSULOSIN HCL 0.4 MG CAP.SR.24H PO SCH (19:16)
--- NOTE | 2018-03-14 21:37 | PDOC PROGRESS REPORT ---
Subjective Progress Note for:: 03/14/18 Subjective:: No acute events overnight. Patient denies any fever chills nausea vomiting chest pain shortness of breath abdominal pain constipation or any urinary symptoms. Reason For Visit: ARF,SEPSIS,UTI Physical Exam Vital Signs: Temp Pulse Resp BP Pulse Ox 97.3 F 53 L 18 137/64 H 100 03/14/18 15:51 03/14/18 15:51 03/14/18 15:51 03/14/18 15:51 03/14/18 15:51 Intake & Output 03/13/18 03/14/18 03/15/18 06:59 06:59 06:59 Intake Total 1750 844 960 Balance 1750 844 960 Weight 96.4 kg 102.2 kg Results Laboratory Results: 03/14/18 05:19 03/14/18 05:19 03/14/18 03/14/18 05:19 05:19 WBC 9.7 RBC 3.78 L Hgb 11.5 L Hct 33.6 L MCV 89 MCH 30.3 MCHC 34.1 RDW 14.1 H Plt Count 125 L Seg Neutrophils % Not Reportable Lymphocytes % Not Reportable Monocytes % Not Reportable Eosinophils % Not Reportable Basophils % Not Reportable Absolute Neutrophils Not Reportable Absolute Lymphocytes Not Reportable Absolute Monocytes Not Reportable Absolute Eosinophils Not Reportable Absolute Basophils Not Reportable Sodium 145.7 H Potassium 5.2 H Chloride 118 H Carbon Dioxide 16 L Anion Gap 12 BUN 61 H Creatinine 2.12 H Est GFR ( Amer) 38 L Est GFR (Non-Af Amer) 31 L Glucose 186 H Calcium 8.2 L Phosphorus 4.6 H Magnesium 2.4 H Total Bilirubin 0.4 AST 47 ALT 62 Alkaline Phosphatase 583 H Total Protein 6.1 L Albumin 3.0 L 03/10/18 12:35 Blood Blood Culture - Final Staphylococcus Aureus Impressions: Renal Ultrasound 03/08/18 00:00 IMPRESSION: Suboptimal exam due to overlying bowel gas. No hydronephrosis. Limited or Localized CT 03/08/18 09:07 IMPRESSION: 1. No nephrolithiasis. Ectopic insertion of the ureters, as detailed above. 2. Diffusely sclerotic appearance of the osseous structures, concerning for metastatic disease. Pathological fracture of the posterior inferior L1 vertebral body with 8 mm of retropulsion into the central canal. 3. Cholelithiasis. 4. Prostatomegaly. 5. Splenomegaly. 6. Small hiatal hernia with mild wall thickening. Correlate with patient's endoscopy history Chest X-Ray 03/09/18 00:00 IMPRESSION: NO ACUTE RADIOGRAPHIC FINDING IN THE CHEST. Assessment & Plan - Diagnosis (1) Bacteremia Is this a current diagnosis for this admission?: Yes Plan: Repeat blood cultures have been negative. Switch to Daptomycin since it is once daily. Blood cultures negative x 48 hours. PICC line was not placed to possible UE DVT (plase refer to surgery note). Plan is to Place Wallace by surgery and discharge pt tomorrow to follow up with his PCP, Oncologist to continue his care. (2) Acute renal failure Qualifiers: Acute renal failure type: unspecified Qualified Code(s): N17.9 - Acute kidney failure, unspecified Is this a current diagnosis for this admission?: Yes Plan: Likely due to underlying metastatic disease or secondary to postrenal acute kidney injury. His creatinine is trending down electrolytes are within normal except fo K+. Started on Kayexalate PO. Patient will need outpatient nephrology follow-up and oncology follow-up (3) Diabetes mellitus type 2 in nonobese Is this a current diagnosis for this admission?: Yes Plan: On long-acting insulin will continue monitoring blood glucose level and (4) Lumbar back pain Is this a current diagnosis for this admission?: Yes Plan: Related to underlying metastatic disease we will continue supportive care (5) Pathologic compression fracture of spine Qualifiers: Encounter type: subsequent encounter Is this a current diagnosis for this admission?: Yes Plan: Likely due to underlying metastatic cancer. Oncology is on board and patient has pending multiple, multiple myeloma workup and PSA. Please refer to oncology note (6) Prostate cancer metastatic to bone Is this a current diagnosis for this admission?: Yes (7) Hyperkalemia Is this a current diagnosis for this admission?: Yes Plan: Started on Kayexalate. CMP tomorrow.
[2018-03-14] MEDS: FAMOTIDINE 20 MG TABLET PO SCH (21:56)
[2018-03-14] MEDS: CEFAZOLIN 2 GM/D5W RTU 2 GM/50 ML RTUPB IV SCH (22:06)
--- NOTE | 2018-03-14 22:12 | RADIOLOGY REPORT (SQ) ---
EXAM DESCRIPTION: VENOUS BILATERAL UPPER COMPLETED DATE/TIME: 03/14/2018 9:59 pm REASON FOR STUDY: Clots in upper extremities COMPARISON: None. TECHNIQUE: Dynamic and static calvert scale and color images acquired of the right and left arm venous system. Selected spectral images acquired with additional compression and augmentation maneuvers. The contralateral subclavian vein and internal jugular vein were also imaged. Images stored on PACS. LIMITATIONS: None. FINDINGS: RIGHT ARM: INTERNAL JUGULAR VEIN: Normal phasicity, compression, augmentation. No visualized echogenic material on calvert scale. No defects on color images. Comparison opposite side normal. SUBCLAVIAN VEIN: Normal compression, augmentation. No visualized echogenic material on calvert scale. No defects on color images. AXILLARY VEIN: Normal compression, augmentation. No visualized echogenic material on calvert scale. No d efects on color images. BRACHIAL VEIN: Normal compression, augmentation. No visualized echogenic material on calvert scale. No d efects on color images. BASILIC VEIN: Normal compression, augmentation. No visualized echogenic material on calvert scale. No de fects on color images. CEPHALIC VEIN: Normal compression, augmentation. No visualized echogenic material on calvert scale. No d efects on color images. OTHER: No other significant finding. LEFT ARM: INTERNAL JUGULAR VEIN: Normal phasicity, compression, augmentation. No visualized echogenic material on calvert scale. No defects on color images. Comparison opposite side normal. SUBCLAVIAN VEIN: Normal compression, augmentation. No visualized echogenic material on calvert scale. No defects on color images. AXILLARY VEIN: Normal compression, augmentation. No visualized echogenic material on calvert scale. No d efects on color images. BRACHIAL VEIN: Normal compression, augmentation. No visualized echogenic material on calvert scale. No d efects on color images. BASILIC VEIN: Normal compression, augmentation. No visualized echogenic material on calvert scale. No de fects on color images. CEPHALIC VEIN: Normal compression, augmentation. No visualized echogenic material on calvert scale. No d efects on color images. OTHER: No other significant finding. IMPRESSION: NO EVIDENCE DVT OR SVT RIGHT OR LEFT ARM. COMMENT: Preliminary report was called by the technologist to the referring clinician's office at th e time of patient visit. TECHNICAL DOCUMENTATION: JOB ID: [id number] [employer]- All Rights Reserved Reading location - IP/workstation name: [email or web address]
[2018-03-15] MEDS: DEXAMETHASONE 4 MG TABLET PO SCH ×5 (00:07→22:00)
[2018-03-15] MEDS: HEPARIN SOD (PORCINE) 5,000 UNIT/ML 1 ML SYRINGE SUBCUT SCH ×3 (06:33→22:19)
[2018-03-15 07:41] LABS: ABSOLUTE LYMPHOCYTES (AUTO) 0.5 10^3/uL (0.5-4.7); ABSOLUTE MONOCYTES (AUTO) 0.4 10^3/uL (0.1-1.4); ABSOLUTE NEUT (AUTO) 8.3 10^3/uL (1.7-8.2); BASOPHILS % (AUTO) 0.1 % (0-2); HEMATOCRIT 30.8 % (37.9-51.0); HEMOGLOBIN 10.7 g/dL (13.5-17.0); LYMPHOCYTES % (AUTO) 5.1 % (13-45); MEAN CORPUSCULAR HEMOGLOBIN 30.4 pg (27.0-33.4); MEAN CORPUSCULAR HGB CONC 34.7 g/dL (32.0-36.0); MEAN CORPUSCULAR VOLUME 88 fl (80-97); MONOCYTES % (AUTO) 4.7 % (3-13); PLATELET COUNT 102 10^3/uL (150-450); RED BLOOD COUNT 3.52 10^6/uL (4.35-5.55); RED CELL DISTRIBUTION WIDTH 13.9 % (11.5-14.0); SEGMENTED NEUTROPHILS % (AUTO) 90.1 % (42-78); TOTAL CELLS COUNTED % (AUTO) 100 %; WHITE BLOOD COUNT 9.2 10^3/uL (4.0-10.5)
[2018-03-15] MEDS ORDERED: FENTANYL CITRATE INJ/PF 100 MCG/2 ML AMPUL ONE (07:48)
[2018-03-15] MEDS ORDERED: MIDAZOLAM 2 MG/2 ML INJ ONE (07:48)
[2018-03-15] MEDS ORDERED: BUPIVACAINE HCL 0.5 % INJ/PF 30 ML SDV ONE (07:49)
[2018-03-15] MEDS ORDERED: LIDOCAINE 0.5% INJ-PF (5 MG/ML) 50 ML SDV ONE (07:49)
[2018-03-15] MEDS ORDERED: PROPOFOL INJ 200 MG/20 ML VIAL IV ONE (07:49)
[2018-03-15 08:24] LABS: ALANINE AMINOTRANSFERASE 56 U/L (21-72); ALBUMIN 2.6 g/dL (3.5-5.0); ALKALINE PHOSPHATASE 503 U/L (38-126); ANION GAP 12 (5-19); ASPARTATE AMINO TRANSFERASE 32 U/L (17-59); BILIRUBIN,DIRECT 0.4 mg/dL (0.0-0.4); BILIRUBIN,TOTAL 0.5 mg/dL (0.2-1.3); BLOOD UREA NITROGEN 59 mg/dL (7-20); CALCIUM 7.8 mg/dL (8.4-10.2); CARBON DIOXIDE 16 mmol/L (22-30); CHLORIDE 117 mmol/L (98-107); GLUCOSE 171 mg/dL (75-110); POTASSIUM 4.7 mmol/L (3.6-5.0); TOTAL PROTEIN 5.3 g/dL (6.3-8.2)
[2018-03-15] MEDS ORDERED: LIDOCAINE 1%/EPINEPHRINE INJ 20 ML VIAL ONE ×2 (08:44→09:17)
--- NOTE | 2018-03-15 10:01 | Operative Report ---
Nonrecallable Operative Report DATE OF SURGERY: 03/15/18 PREOPERATIVE DIAGNOSIS: need IV access POSTOPERATIVE DIAGNOSIS: same OPERATION: Right internal jugular vein Wallace catheter placement SURGEON: SAUL BOWIE ANESTHESIA: LMAC - plus 30 mL 1% lidocaine with epi TISSUE REMOVED OR ALTERED: n/a COMPLICATIONS: none ESTIMATED BLOOD LOSS: 200 INTRAOPERATIVE FINDINGS: as above PROCEDURE: see dictation
[2018-03-15] MEDS ORDERED: DIPHENHYDRAMINE HCL 50 MG/ML VIAL IV PRN (10:46)
[2018-03-15] MEDS ORDERED: FENTANYL CITRATE INJ/PF 100 MCG/2 ML AMPUL IV PRN ×3 (10:46)
--- NOTE | 2018-03-15 10:55 | Progress Note ---
Provider Note Provider Note: ID Consult Note Contacted yesterday that Dr Bernstein wanted me to weigh in again on recommendations for the patinet. Also spoke briefly to Dr Wilkerson yesterday . Reviewed chart. Pt not seen or examined. Pt was admitted with progressive low back pain, constitutional symptoms including subjective fever at home, although he has been afebrile here. Pt was found to have midline throracic back tenderness to palpation, no murmur or other stigmata of IE or skin lesions, no neurological compromise. Pt was admitted, on vancomycin and Rocephin empirically, then de-escalated to Rocephin alone when blood cultures from admission were reported to have growth of MSSA in [address] without contrast of pt's spine shows diffuse sclerotic lesions concerning for metastatic disease and a pathologic fx. Repeat BCx on continued to show growth of MSSA in 2 of 4 bottles. TTE found no vegetation on the tricuspid, mitral or aortic valves. Repeat blood cultures on 03/12 are now negative x 48h. Impression/Recommendations Largely unchanged from previous. Staph aureus is a highly virulent pathogen. The patient has community onset MSSA bactermia from an unknown source. These are factors that increase the likelihood of having a deep-seated or metastatic foci of infection, such as infective endocarditis or spondylodiscitis. Although TTE was negative for vegetation, the patient having worsening back pain in the setting of otherwise unexplained MSSA bacteremia is concerning. Pt has a vertebral fracture and sclerotic lesions that are likely due to metastatic prostate cancer, but that does not exclude the possibility of having an infectious process as well. MRI is the imaging modality of choice for suspected spondylodiscitis and would be able to provide the best visualization of any epidural extension of infection if it is given with contrast. This can be deferred since the patient is stable and neurologically intact, while his SORIN continues to slowly improve and he relocates back to [place], [place], for further care. As was the plan previously, the patient should be treated for complicated MSSA bacteremia with a minimum of 4 weeks of IV daptomycin, starting from the date of negative blood culture (until Apr 09). Based MRI results, his course of therapy may need to be extended to 6 weeks in total. While pt is on daptomycin, CBC, CMP and CPK will need to be checked on a weekly basis. Cefazolin is also an option if any difficulty tolerating daptomycin, but cefazolin requires q8h IV dosing which is more difficult as an outpatient at home. Rocephin has been used as a once a day drug for MSSA in osteoarticular infections but has suboptimal activity against Staph aureus. . One recent study regarding this issue, for instance - [email or web address]/[email or web address] Buddy Adrian MD [facility] Infectious Diseases pager [phone]
--- NOTE | 2018-03-15 11:03 | RADIOLOGY REPORT (SQ) ---
EXAM DESCRIPTION: CHEST SINGLE VIEW COMPLETED DATE/TIME: 03/15/2018 10:51 am REASON FOR STUDY: wang catheter insertion/ in pacu COMPARISON: 03/09/2018. EXAM PARAMETERS: NUMBER OF VIEWS: One view. TECHNIQUE: Single frontal radiographic view of the chest acquired. RADIATION DOSE: NA LIMITATIONS: None. FINDINGS: LUNGS AND PLEURA: No opacities, masses or pneumothorax. No pleural effusion. MEDIASTINUM AND HILAR STRUCTURES: No masses. Contour normal. HEART AND VASCULAR STRUCTURES: Heart normal in size. Normal vasculature. BONES: No acute findings. HARDWARE: Catheter on the right side with the tip at the level of the superior vena cava. OTHER: No other significant finding. IMPRESSION: NO PNEUMOTHORAX FOLLOWING CATHETER PLACEMENT. NO ACUTE FINDINGS. TECHNICAL DOCUMENTATION: JOB ID: [id number] [employer]- All Rights Reserved Reading location - IP/workstation name: [email or web address]
[2018-03-15] MEDS: DAPTOMYCIN 600 MG in NORMAL SALINE 50 ML IV SCH (11:19)
--- NOTE | 2018-03-15 13:31 | PDOC PROGRESS REPORT ---
Subjective Progress Note for:: 03/15/18 Subjective:: Patient underwent his surgery today. He has no new complaints. He states that plans have changed and he will now continue his IV antibiotics until Saturday at which time he will fly back to [place] for further treatment. He has "a team in place" in [place] when he arrives ready for further work-up and management of his prostate cancer, but agree that further testing should be done after he returns to [place]. Reason For Visit: ARF,SEPSIS,UTI Physical Exam Vital Signs: Temp Pulse Resp BP Pulse Ox 97.5 F 64 17 138/67 H 100 03/15/18 12:00 03/15/18 12:00 03/15/18 12:00 03/15/18 12:00 03/15/18 12:00 Intake & Output 03/14/18 03/15/18 03/16/18 06:59 06:59 06:59 Intake Total 844 2078 475 Output Total 0 Balance 844 2078 475 Weight 102.2 kg 102.5 kg General appearance: PRESENT: no acute distress Respiratory exam: PRESENT: clear to auscultation syed, unlabored Cardiovascular exam: PRESENT: RRR Extremities exam: PRESENT: +1 edema - bilateral ankles Skin exam: PRESENT: normal color Results Laboratory Results: 03/15/18 06:08 03/15/18 06:08 03/15/18 03/15/18 06:08 06:08 WBC 9.2 RBC 3.52 L Hgb 10.7 L Hct 30.8 L MCV 88 MCH 30.4 MCHC 34.7 RDW 13.9 Plt Count 102 L Seg Neutrophils % 90.1 H Lymphocytes % 5.1 L Monocytes % 4.7 Eosinophils % 0.0 Basophils % 0.1 Absolute Neutrophils 8.3 H Absolute Lymphocytes 0.5 Absolute Monocytes 0.4 Absolute Eosinophils 0.0 Absolute Basophils 0.0 Sodium 145.0 Potassium 4.7 Chloride 117 H Carbon Dioxide 16 L Anion Gap 12 BUN 59 H Creatinine 1.96 H Est GFR ( Amer) 41 L Est GFR (Non-Af Amer) 34 L Glucose 171 H Calcium 7.8 L Magnesium 2.4 H Total Bilirubin 0.5 AST 32 ALT 56 Alkaline Phosphatase 503 H Total Protein 5.3 L Albumin 2.6 L Impressions: Renal Ultrasound 03/08/18 00:00 IMPRESSION: Suboptimal exam due to overlying bowel gas. No hydronephrosis. Limited or Localized CT 03/08/18 09:07 IMPRESSION: 1. No nephrolithiasis. Ectopic insertion of the ureters, as detailed above. 2. Diffusely sclerotic appearance of the osseous structures, concerning for metastatic disease. Pathological fracture of the posterior inferior L1 vertebral body with 8 mm of retropulsion into the central canal. 3. Cholelithiasis. 4. Prostatomegaly. 5. Splenomegaly. 6. Small hiatal hernia with mild wall thickening. Correlate with patient's endoscopy history Venous Doppler Study 03/14/18 00:00 IMPRESSION: NO EVIDENCE DVT OR SVT RIGHT OR LEFT ARM. Chest X-Ray 03/15/18 00:00 IMPRESSION: NO PNEUMOTHORAX FOLLOWING CATHETER PLACEMENT. NO ACUTE FINDINGS. Assessment & Plan - Plan Summary Plan Summary: Plan for discharge Saturday, as per HPI. I agree. Further testing and treatment for his prostate cancer after his infection has cleared.
--- NOTE | 2018-03-15 14:53 | PDOC PROGRESS REPORT ---
Subjective Progress Note for:: 03/15/18 Subjective:: No acute events overnight. Diarrhea has resolved. Today patient had a Wallace placed for continuation of antibiotic. Wallace cannot be used until 48 hours after placement. Patient has agreed to wait until Saturday and then be discharged to continue his care in [facility]. Patient denies any fever, chills, shortness of breath, chest pain, abdominal pain, nausea, vomiting, diarrhea, constipation or any urinary symptoms. Reason For Visit: ARF,SEPSIS,UTI Physical Exam Vital Signs: Temp Pulse Resp BP Pulse Ox 97.5 F 64 17 138/67 H 100 03/15/18 12:00 03/15/18 12:00 03/15/18 12:00 03/15/18 12:00 03/15/18 12:00 Intake & Output 03/14/18 03/15/18 03/16/18 06:59 06:59 06:59 Intake Total 844 2078 475 Output Total 0 Balance 844 2078 475 Weight 102.2 kg 102.5 kg General appearance: PRESENT: no acute distress, well-developed, well-nourished Head exam: PRESENT: atraumatic, normocephalic Eye exam: PRESENT: conjunctiva pink, EOMI, PERRLA. ABSENT: scleral icterus Ear exam: PRESENT: normal external ear exam Mouth exam: PRESENT: moist, tongue midline Neck exam: ABSENT: carotid bruit, JVD, lymphadenopathy, thyromegaly Respiratory exam: PRESENT: clear to auscultation syed. ABSENT: rales, rhonchi, wheezes Cardiovascular exam: PRESENT: RRR. ABSENT: diastolic murmur, rubs, systolic murmur Pulses: PRESENT: normal dorsalis pedis pul Vascular exam: PRESENT: normal capillary refill GI/Abdominal exam: PRESENT: normal bowel sounds, soft. ABSENT: distended, guarding, mass, organolmegaly, rebound, tenderness Rectal exam: PRESENT: deferred Extremities exam: PRESENT: full ROM. ABSENT: calf tenderness, clubbing, pedal edema Neurological exam: PRESENT: alert, awake, oriented to person, oriented to place , oriented to time, oriented to situation, CN II-XII grossly intact. ABSENT: motor sensory deficit Psychiatric exam: PRESENT: appropriate affect, normal mood. ABSENT: homicidal ideation, suicidal ideation Skin exam: PRESENT: dry, intact, warm. ABSENT: cyanosis, rash Results Laboratory Results: 03/15/18 06:08 03/15/18 06:08 03/15/18 03/15/18 06:08 06:08 WBC 9.2 RBC 3.52 L Hgb 10.7 L Hct 30.8 L MCV 88 MCH 30.4 MCHC 34.7 RDW 13.9 Plt Count 102 L Seg Neutrophils % 90.1 H Lymphocytes % 5.1 L Monocytes % 4.7 Eosinophils % 0.0 Basophils % 0.1 Absolute Neutrophils 8.3 H Absolute Lymphocytes 0.5 Absolute Monocytes 0.4 Absolute Eosinophils 0.0 Absolute Basophils 0.0 Sodium 145.0 Potassium 4.7 Chloride 117 H Carbon Dioxide 16 L Anion Gap 12 BUN 59 H Creatinine 1.96 H Est GFR ( Amer) 41 L Est GFR (Non-Af Amer) 34 L Glucose 171 H Calcium 7.8 L Magnesium 2.4 H Total Bilirubin 0.5 AST 32 ALT 56 Alkaline Phosphatase 503 H Total Protein 5.3 L Albumin 2.6 L Impressions: Renal Ultrasound 03/08/18 00:00 IMPRESSION: Suboptimal exam due to overlying bowel gas. No hydronephrosis. Limited or Localized CT 03/08/18 09:07 IMPRESSION: 1. No nephrolithiasis. Ectopic insertion of the ureters, as detailed above. 2. Diffusely sclerotic appearance of the osseous structures, concerning for metastatic disease. Pathological fracture of the posterior inferior L1 vertebral body with 8 mm of retropulsion into the central canal. 3. Cholelithiasis. 4. Prostatomegaly. 5. Splenomegaly. 6. Small hiatal hernia with mild wall thickening. Correlate with patient's endoscopy history Venous Doppler Study 03/14/18 00:00 IMPRESSION: NO EVIDENCE DVT OR SVT RIGHT OR LEFT ARM. Chest X-Ray 03/15/18 00:00 IMPRESSION: NO PNEUMOTHORAX FOLLOWING CATHETER PLACEMENT. NO ACUTE FINDINGS. Assessment & Plan - Diagnosis (1) Bacteremia Is this a current diagnosis for this admission?: Yes Plan: Repeat blood cultures have been negative. Switch to Daptomycin since it is once daily. Blood cultures negative x 48/72 hours. PICC line was not placed, for fear of possible UE Thrombosis. Gregory was placed today however it cannot be used for 48 hours post placement. Patient has agreed to wait until Saturday and then be discharged to go to [facility] and continue his care. (2) Acute renal failure Qualifiers: Acute renal failure type: unspecified Qualified Code(s): N17.9 - Acute kidney failure, unspecified Is this a current diagnosis for this admission?: Yes Plan: Likely due to underlying metastatic disease or secondary to postrenal acute kidney injury. His creatinine is trending down electrolytes are within normal. Serum potassium within normal limits. Patient will need outpatient nephrology follow-up and oncology follow-up (3) Diabetes mellitus type 2 in nonobese Is this a current diagnosis for this admission?: Yes Plan: On long-acting insulin will continue monitoring blood glucose level. Outpatient PCP follow-up (4) Lumbar back pain Is this a current diagnosis for this admission?: Yes Plan: Related to underlying metastatic disease we will continue supportive care (5) Pathologic compression fracture of spine Qualifiers: Encounter type: subsequent encounter Is this a current diagnosis for this admission?: Yes Plan: Likely due to underlying metastatic cancer. Patient will be discharged on Saturday to continue his care and [facility]. Oncology on board. (6) Prostate cancer metastatic to bone Is this a current diagnosis for this admission?: Yes Plan: Oncologist on board. Will follow up recommendation. Please refer to oncology notes. (7) Hyperkalemia Is this a current diagnosis for this admission?: Yes Plan: Potassium 4.7 today CMP tomorrow continue Kayexalate
--- NOTE | 2018-03-15 15:34 | Progress Note ---
Provider Note Provider Note: Chest Xray shows good position of Wallace catheter; no pneumothorax Wallace catheter can be used immediately I will sign off
[2018-03-15] MEDS: INSULIN REG, HUMAN 100 UNIT/ML 3 ML VIAL (PYX) SUBCUT PRN (17:02)
[2018-03-15] MEDS: FAMOTIDINE 20 MG TABLET PO SCH (17:04)
[2018-03-15] MEDS: TAMSULOSIN HCL 0.4 MG CAP.SR.24H PO SCH (17:04)
[2018-03-16] MEDS: HEPARIN SOD (PORCINE) 5,000 UNIT/ML 1 ML SYRINGE SUBCUT SCH ×3 (05:47→22:04)
[2018-03-16] MEDS: DEXAMETHASONE 4 MG TABLET PO SCH ×4 (06:45→23:35)
--- NOTE | 2018-03-16 08:29 | OPERATIVE REPORT E ---
Operative Report NAME: SY MONTE : 1945 AGE: 72Y DATE OF SURGERY: 03/15/2018 ROOM: 430 PREOPERATIVE DIAGNOSIS: In need of IV access. POSTOPERATIVE DIAGNOSIS: In need of IV access. PROCEDURE: Right IJ Wallace catheter placement. SURGEON: SAUL BOWIE M.D. TUMBLERS SUPERVISOR: None. ESTIMATED BLOOD LOSS: 400 mL. COMPLICATIONS: None. ANESTHESIA: General, MAC provided by anesthesiologist plus 30 mL of 1% lidocaine with epinephrine as local. INDICATION AND FINDINGS: This is a 72-year-old male who needs IV access for administration of IV antibiotics. A Wallace catheter has been requested because the PICC line could not be inserted due to blood clots identified in the cephalic and basilica arm veins. DESCRIPTION OF PROCEDURE: This was done in the operating room. The patient was placed supine. Both sides of the chest and neck were prepped and draped in the usual fashion. MAC anesthesia was induced by the anesthesiologist. The area of the apex of the anterior sternocleidomastoid muscle triangle was infiltrated with lidocaine and an 18 gauge finding needle was used to easily cannulate the right IJ vein. This was removed and a 16-gauge needle was used to cannulate the right internal jugular vein. The guidewire was inserted through the needle into the right internal jugular vein and superior vena cava. The needle was removed. The position of the wire was confirmed by fluoroscopy, and local anesthesia was then infiltrated in the right upper chest from the insertion point of the catheter and throughout the subcutaneous tract. Following this, a stab wound incision was made at insertion point of the guidewire in the right upper chest and in the neck at the guidewire insertion point. The electrical panel builder was inserted in a curvilinear fashion up to the insertion point of the guidewire. The electrical panel builder and catheter were pulled through the neck incision. Fluoroscopy was obtained so to divide the catheter to the appropriate length; the tissue dilator and sheath were then inserted over the guidewire into the internal jugular vein and superior vena cava. The sheath and wire were then removed. The catheter was inserted through the sheath and it stopped after about 12 to 15 cm. It then was gently advanced with DeBakey forceps and the sheath was pulled. As this happened, the whole catheter was pulled out and a moderate amount of bleeding was obtained. This was controlled with pressure. A new guidewire was inserted through the right internal jugular vein, followed by a new sheath and, under flouro, the catheter was inserted through the sheath into the internal jugular venous and superior vena cava. The sheath was pulled out without difficulty. Fluoroscopy confirmed good position of the catheter. The skin incision in the neck was closed with Dermabond. A silver antibacterial disk was applied at the insertion point of the catheter over the chest followed by 2 x 2 and Tegaderm. The patient tolerated the procedure well. He was transferred to the recovery room, where a chest x-ray was obtained to confirm position of the line. DICTATING PHYSICIAN: SAUL BOWIE M.D. [id number] PHY#: [id number] ID: [id number] JOB#: [id number] ACCT: [id number] cc:SAUL BOWIE M.D. > MTDD
[2018-03-16] MEDS: DAPTOMYCIN 600 MG in NORMAL SALINE 50 ML IV SCH (11:26)
[2018-03-16 12:04] LABS: ALANINE AMINOTRANSFERASE 60 U/L (21-72); ALKALINE PHOSPHATASE 500 U/L (38-126); ANION GAP 13 (5-19); ASPARTATE AMINO TRANSFERASE 37 U/L (17-59); BILIRUBIN,DIRECT 0.5 mg/dL (0.0-0.4); BILIRUBIN,TOTAL 0.7 mg/dL (0.2-1.3); BLOOD UREA NITROGEN 55 mg/dL (7-20); CALCIUM 8.1 mg/dL (8.4-10.2); CARBON DIOXIDE 16 mmol/L (22-30); CHLORIDE 112 mmol/L (98-107); GLUCOSE 256 mg/dL (75-110); POTASSIUM 4.6 mmol/L (3.6-5.0); SODIUM 141.1 mmol/L (137-145); TOTAL PROTEIN 5.9 g/dL (6.3-8.2)
[2018-03-16 12:24] LABS: HEMATOCRIT 34.1 % (37.9-51.0); HEMOGLOBIN 11.6 g/dL (13.5-17.0); MEAN CORPUSCULAR HEMOGLOBIN 30.2 pg (27.0-33.4); MEAN CORPUSCULAR HGB CONC 34.1 g/dL (32.0-36.0); MEAN CORPUSCULAR VOLUME 89 fl (80-97); PLATELET COUNT 102 10^3/uL (150-450); RED BLOOD COUNT 3.86 10^6/uL (4.35-5.55); RED CELL DISTRIBUTION WIDTH 14.1 % (11.5-14.0); WHITE BLOOD COUNT 10.3 10^3/uL (4.0-10.5)
[2018-03-16] MEDS: INSULIN REG, HUMAN 100 UNIT/ML 3 ML VIAL (PYX) SUBCUT PRN ×2 (12:26→22:13)
[2018-03-16 12:28] LABS: ABSOLUTE LYMPHOCYTES# (MANUAL) 0.6 10^3/uL (0.5-4.7); ABSOLUTE MONOCYTES # (MANUAL) 0.2 10^3/uL (0.1-1.4); ABSOLUTE NEUTROPHILS# (MANUAL) 9.5 10^3/uL (1.7-8.2); BASOPHILS % (MANUAL) 0 % (0-2); EOSINOPHILS % (MANUAL) 0 % (0-6); LYMPHOCYTES % (MANUAL) 6 % (13-45); MONOCYTES % (MANUAL) 2 % (3-13); SEGMENTED NEUTROPHILS % (MAN) 92 % (42-78); TOTAL CELLS COUNTED 100
[2018-03-16 12:29] LABS: ANISOCYTOSIS SLIGHT; PLATELET COMMENT DECREASED; TOXIC GRANULATION SLIGHT
--- NOTE | 2018-03-16 16:39 | RADIOLOGY REPORT (SQ) ---
EXAM DESCRIPTION: FLUORO/CV PLACEMENT COMPLETED DATE/TIME: 03/16/2018 4:00 pm REASON FOR STUDY: ANGELO CATHETER INSERTION COMPARISON: None. FLUOROSCOPY TIME: 0.1 minutes 5 images saved to PACS. TECHNIQUE: Intra-operative images acquired during surgical procedure to evaluate progress. NUMBER OF IMAGES: 5 images LIMITATIONS: None. FINDINGS: Fluoroscopic images were obtained during positioning of a Angelo catheter. Please refer to the surgeon's operative report for additional information IMPRESSION: IMAGE(S) OBTAINED DURING PROCEDURE. COMMENT: Quality ID [id number]: Final reports for procedures using fluoroscopy that document radiation exp osure indices, or exposure time and number of fluorographic images (if radiation exposure indices are not available) Please consult full operative report of the attending physician for description of the procedure. TECHNICAL DOCUMENTATION: JOB ID: [id number] 1881 [employer]- All Rights Reserved Reading location - IP/workstation name: [email or web address]
--- NOTE | 2018-03-16 17:17 | PDOC PROGRESS REPORT ---
Subjective Progress Note for:: 03/16/18 Subjective:: No acute events overnight. Patient denies any fever, chills, shortness of breath, chest pain, abdominal pain, nausea, vomiting, diarrhea, constipation or any urinary symptoms. Reason For Visit: ARF,SEPSIS,UTI Physical Exam Vital Signs: Temp Pulse Resp BP Pulse Ox 97.4 F 51 L 17 133/59 H 100 03/16/18 08:05 03/16/18 08:05 03/16/18 08:05 03/16/18 08:05 03/16/18 08:05 Intake & Output 03/15/18 03/16/18 03/17/18 06:59 06:59 06:59 Intake Total 2077 2194 50 Output Total 0 Balance 2077 2194 50 Weight 102.5 kg 102.5 kg Results Laboratory Results: 03/16/18 10:18 03/16/18 10:18 03/16/18 03/16/18 10:18 10:18 WBC 10.3 RBC 3.86 L Hgb 11.6 L Hct 34.1 L MCV 89 MCH 30.2 MCHC 34.1 RDW 14.1 H Plt Count 102 L Seg Neutrophils % Not Reportable Lymphocytes % Not Reportable Monocytes % Not Reportable Eosinophils % Not Reportable Basophils % Not Reportable Absolute Neutrophils Not Reportable Absolute Lymphocytes Not Reportable Absolute Monocytes Not Reportable Absolute Eosinophils Not Reportable Absolute Basophils Not Reportable Sodium 141.1 Potassium 4.6 Chloride 112 H Carbon Dioxide 16 L Anion Gap 13 BUN 55 H Creatinine 1.93 H Est GFR ( Amer) 42 L Est GFR (Non-Af Amer) 35 L Glucose 256 H Calcium 8.1 L Magnesium 2.4 H Total Bilirubin 0.7 AST 37 ALT 60 Alkaline Phosphatase 500 H Total Protein 5.9 L Albumin 3.0 L Impressions: Renal Ultrasound 03/08/18 00:00 IMPRESSION: Suboptimal exam due to overlying bowel gas. No hydronephrosis. Limited or Localized CT 03/08/18 09:07 IMPRESSION: 1. No nephrolithiasis. Ectopic insertion of the ureters, as detailed above. 2. Diffusely sclerotic appearance of the osseous structures, concerning for metastatic disease. Pathological fracture of the posterior inferior L1 vertebral body with 8 mm of retropulsion into the central canal. 3. Cholelithiasis. 4. Prostatomegaly. 5. Splenomegaly. 6. Small hiatal hernia with mild wall thickening. Correlate with patient's endoscopy history Venous Doppler Study 03/14/18 00:00 IMPRESSION: NO EVIDENCE DVT OR SVT RIGHT OR LEFT ARM. Chest X-Ray 03/15/18 00:00 IMPRESSION: NO PNEUMOTHORAX FOLLOWING CATHETER PLACEMENT. NO ACUTE FINDINGS. Guidance Fluoroscopy 03/15/18 00:00 IMPRESSION: IMAGE(S) OBTAINED DURING PROCEDURE. Assessment & Plan - Diagnosis (1) Bacteremia Is this a current diagnosis for this admission?: Yes Plan: Repeat blood cultures have been negative. Switch to Daptomycin since it is once daily. Blood cultures negative x 48/72 hours. PICC line was not placed, for fear of possible UE Thrombosis. Gregory was placed today however it cannot be used for 48 hours post placement. Patient has agreed to wait until Saturday and then be discharged to go to [facility] and continue his care. (2) Acute renal failure Qualifiers: Acute renal failure type: unspecified Qualified Code(s): N17.9 - Acute kidney failure, unspecified Is this a current diagnosis for this admission?: Yes Plan: Likely due to underlying metastatic disease or secondary to postrenal acute kidney injury. His creatinine is trending down electrolytes are within normal. Serum potassium within normal limits. Patient will need outpatient nephrology follow-up and oncology follow-up (3) Diabetes mellitus type 2 in nonobese Is this a current diagnosis for this admission?: Yes Plan: On long-acting insulin will continue monitoring blood glucose level. Outpatient PCP follow-up (4) Lumbar back pain Is this a current diagnosis for this admission?: Yes Plan: Related to underlying metastatic disease we will continue supportive care (5) Pathologic compression fracture of spine Qualifiers: Encounter type: subsequent encounter Is this a current diagnosis for this admission?: Yes Plan: Likely due to underlying metastatic cancer. Patient will be discharged on Saturday to continue his care and [facility]. Oncology on board. (6) Prostate cancer metastatic to bone Is this a current diagnosis for this admission?: Yes Plan: Oncologist on board. Will follow up recommendation. Please refer to oncology notes. (7) Hyperkalemia Is this a current diagnosis for this admission?: Yes Plan: Potassium 4.7 today CMP tomorrow. DC Kayexalate
[2018-03-16] MEDS: FAMOTIDINE 20 MG TABLET PO SCH (17:21)
[2018-03-16] MEDS: TAMSULOSIN HCL 0.4 MG CAP.SR.24H PO SCH (17:21)
[2018-03-16] MEDS ORDERED: INSULIN GLARGINE,HUM.REC.ANLOG 1,000 UNIT/10 ML UNIT SUBCUT SCH (22:00)
[2018-03-17] MEDS: HEPARIN SOD (PORCINE) 5,000 UNIT/ML 1 ML SYRINGE SUBCUT SCH (05:30)
[2018-03-17] MEDS: DEXAMETHASONE 4 MG TABLET PO SCH (05:43)
[2018-03-17 06:37] LABS: HEMATOCRIT 33.8 % (37.9-51.0); HEMOGLOBIN 11.6 g/dL (13.5-17.0); MEAN CORPUSCULAR HEMOGLOBIN 30.1 pg (27.0-33.4); MEAN CORPUSCULAR HGB CONC 34.3 g/dL (32.0-36.0); MEAN CORPUSCULAR VOLUME 88 fl (80-97); PLATELET COUNT 109 10^3/uL (150-450); RED BLOOD COUNT 3.86 10^6/uL (4.35-5.55); RED CELL DISTRIBUTION WIDTH 13.9 % (11.5-14.0); WHITE BLOOD COUNT 14.2 10^3/uL (4.0-10.5)
[2018-03-17 06:47] LABS: ALANINE AMINOTRANSFERASE 67 U/L (21-72); ALKALINE PHOSPHATASE 505 U/L (38-126); ANION GAP 13 (5-19); ASPARTATE AMINO TRANSFERASE 37 U/L (17-59); BILIRUBIN,DIRECT 0.4 mg/dL (0.0-0.4); BILIRUBIN,TOTAL 0.6 mg/dL (0.2-1.3); BLOOD UREA NITROGEN 50 mg/dL (7-20); CALCIUM 8.3 mg/dL (8.4-10.2); CARBON DIOXIDE 15 mmol/L (22-30); CHLORIDE 112 mmol/L (98-107); GLUCOSE 151 mg/dL (75-110); POTASSIUM 4.8 mmol/L (3.6-5.0); SODIUM 139.9 mmol/L (137-145); TOTAL PROTEIN 5.9 g/dL (6.3-8.2)
[2018-03-17 07:43] LABS: ABSOLUTE LYMPHOCYTES# (MANUAL) 1.7 10^3/uL (0.5-4.7); ABSOLUTE MONOCYTES # (MANUAL) 0.1 10^3/uL (0.1-1.4); ABSOLUTE NEUTROPHILS# (MANUAL) 12.4 10^3/uL (1.7-8.2); BASOPHILS % (MANUAL) 0 % (0-2); EOSINOPHILS % (MANUAL) 0 % (0-6); LYMPHOCYTES % (MANUAL) 12 % (13-45); METAMYELOCYTES % (MANUAL) 2 % (0); MONOCYTES % (MANUAL) 1 % (3-13); SEGMENTED NEUTROPHILS % (MAN) 85 % (42-78); TOTAL CELLS COUNTED 100
[2018-03-17 07:44] LABS: OVALOCYTES SLIGHT; PLATELET COMMENT DECREASED; POIKILOCYTOSIS SLIGHT
[2018-03-17] MEDS ORDERED: DAPTOMYCIN 600 MG in NORMAL SALINE 50 ML IV SCH (08:00)
[2018-03-17 08:45] VITALS: BP 138/67
--- NOTE | 2018-03-17 08:49 | PDOC PROGRESS REPORT ---
Subjective Progress Note for:: 03/17/18 Subjective:: Wallace catheter placed yesterday, patient plan for discharge today with IV antibiotics. Daptomycin given this a.m. I had a long discussion with patient, I gave him his records, I discussed his case with his family friend as well as the dog who is going to be leaving his care in [place]. In total spent 45 minutes in discussion and coordination of care this morning. Reason For Visit: ARF,SEPSIS,UTI Physical Exam Vital Signs: Temp Pulse Resp BP Pulse Ox 97.7 F 55 L 17 138/67 H 100 03/17/18 08:39 03/17/18 08:39 03/17/18 08:39 03/17/18 08:39 03/17/18 08:39 Intake & Output 03/16/18 03/17/18 03/18/18 06:59 06:59 06:59 Intake Total 2195 50 Output Total 0 Balance 2195 50 Weight 102.5 kg 103 kg General appearance: PRESENT: no acute distress, well-developed, well-nourished Head exam: PRESENT: atraumatic, normocephalic Eye exam: PRESENT: conjunctiva pink, EOMI, PERRLA. ABSENT: scleral icterus Ear exam: PRESENT: normal external ear exam Mouth exam: PRESENT: moist, tongue midline Neck exam: ABSENT: carotid bruit, JVD, lymphadenopathy, thyromegaly Respiratory exam: PRESENT: clear to auscultation syed. ABSENT: rales, rhonchi, wheezes Cardiovascular exam: PRESENT: RRR. ABSENT: diastolic murmur, rubs, systolic murmur Pulses: PRESENT: normal dorsalis pedis pul Vascular exam: PRESENT: normal capillary refill GI/Abdominal exam: PRESENT: normal bowel sounds, soft. ABSENT: distended, guarding, mass, organolmegaly, rebound, tenderness Rectal exam: PRESENT: deferred Extremities exam: PRESENT: full ROM. ABSENT: calf tenderness, clubbing, pedal edema Neurological exam: PRESENT: alert, awake, oriented to person, oriented to place , oriented to time, oriented to situation, CN II-XII grossly intact. ABSENT: motor sensory deficit Psychiatric exam: PRESENT: appropriate affect, normal mood. ABSENT: homicidal ideation, suicidal ideation Skin exam: PRESENT: dry, intact, warm. ABSENT: cyanosis, rash Results Laboratory Results: 03/17/18 05:52 03/17/18 05:52 03/16/18 03/16/18 03/16/18 10:18 10:18 10:18 WBC 10.3 RBC 3.86 L Hgb 11.6 L Hct 34.1 L MCV 89 MCH 30.2 MCHC 34.1 RDW 14.1 H Plt Count 102 L Seg Neutrophils % Not Reportable Lymphocytes % Not Reportable Monocytes % Not Reportable Eosinophils % Not Reportable Basophils % Not Reportable Absolute Neutrophils Not Reportable Absolute Lymphocytes Not Reportable Absolute Monocytes Not Reportable Absolute Eosinophils Not Reportable Absolute Basophils Not Reportable Sodium 141.1 Potassium 4.6 Chloride 112 H Carbon Dioxide 16 L Anion Gap 13 BUN 55 H Creatinine 1.93 H Est GFR ( Amer) 42 L Est GFR (Non-Af Amer) 35 L Glucose 256 H Calcium 8.1 L Phosphorus 3.8 Magnesium 2.4 H Total Bilirubin 0.7 AST 37 ALT 60 Alkaline Phosphatase 500 H Total Protein 5.9 L Albumin 3.0 L 03/17/18 03/17/18 05:52 05:52 WBC 14.2 H RBC 3.86 L Hgb 11.6 L Hct 33.8 L MCV 88 MCH 30.1 MCHC 34.3 RDW 13.9 Plt Count 109 L Seg Neutrophils % Not Reportable Lymphocytes % Not Reportable Monocytes % Not Reportable Eosinophils % Not Reportable Basophils % Not Reportable Absolute Neutrophils Not Reportable Absolute Lymphocytes Not Reportable Absolute Monocytes Not Reportable Absolute Eosinophils Not Reportable Absolute Basophils Not Reportable Sodium 139.9 Potassium 4.8 Chloride 112 H Carbon Dioxide 15 L Anion Gap 13 BUN 50 H Creatinine 1.82 H Est GFR ( Amer) 45 L Est GFR (Non-Af Amer) 37 L Glucose 151 H Calcium 8.3 L Phosphorus Magnesium 2.2 Total Bilirubin 0.6 AST 37 ALT 67 Alkaline Phosphatase 505 H Total Protein 5.9 L Albumin 3.0 L Impressions: Renal Ultrasound 03/08/18 00:00 IMPRESSION: Suboptimal exam due to overlying bowel gas. No hydronephrosis. Limited or Localized CT 03/08/18 09:07 IMPRESSION: 1. No nephrolithiasis. Ectopic insertion of the ureters, as detailed above. 2. Diffusely sclerotic appearance of the osseous structures, concerning for metastatic disease. Pathological fracture of the posterior inferior L1 vertebral body with 8 mm of retropulsion into the central canal. 3. Cholelithiasis. 4. Prostatomegaly. 5. Splenomegaly. 6. Small hiatal hernia with mild wall thickening. Correlate with patient's endoscopy history Venous Doppler Study 03/14/18 00:00 IMPRESSION: NO EVIDENCE DVT OR SVT RIGHT OR LEFT ARM. Chest X-Ray 03/15/18 00:00 IMPRESSION: NO PNEUMOTHORAX FOLLOWING CATHETER PLACEMENT. NO ACUTE FINDINGS. Guidance Fluoroscopy 03/15/18 00:00 IMPRESSION: IMAGE(S) OBTAINED DURING PROCEDURE. Assessment & Plan - Diagnosis (1) Pathologic compression fracture of spine Qualifiers: Encounter type: subsequent encounter Is this a current diagnosis for this admission?: Yes Plan: Likely secondary to metastatic prostate cancer (2) Acute renal failure Qualifiers: Acute renal failure type: unspecified Qualified Code(s): N17.9 - Acute kidney failure, unspecified Is this a current diagnosis for this admission?: Yes Plan: Improved creatinine now down to 1.8. (3) Secondary cancer of bone Is this a current diagnosis for this admission?: Yes Plan: Secondary to prostate cancer, ultimately will require biopsy but he may need to complete IV antibiotics before they are comfortable doing that. (4) Bacteremia Is this a current diagnosis for this admission?: Yes Plan: Plan for 3 more weeks of IV daptomycin until 03/09/2018. (5) Prostate cancer metastatic to bone Is this a current diagnosis for this admission?: Yes Plan: Today we had a discussion about this, 1 cc oncology they may be comfortable initiating systemic therapy possibly with Casodex as well as Lupron for androgen deprivation therapy prior to biopsy, so we will see. - Time Time Spent with patient: 35 or more minutes
--- NOTE | 2018-03-19 12:45 | PDOC DISCHARGE SUMMARY ---
General - Admit/Disc Date/PCP Admission Date/Primary Care Provider: 03/08/18 14:33 Discharge Date: 03/17/18 - Discharge Diagnosis (1) Bacteremia Is this a current diagnosis for this admission?: Yes (2) Acute renal failure Is this a current diagnosis for this admission?: Yes (3) Diabetes mellitus type 2 in nonobese Is this a current diagnosis for this admission?: Yes (4) Lumbar back pain Is this a current diagnosis for this admission?: Yes (5) Pathologic compression fracture of spine Is this a current diagnosis for this admission?: Yes (6) Prostate cancer metastatic to bone Is this a current diagnosis for this admission?: Yes (7) Hyperkalemia Is this a current diagnosis for this admission?: Yes - Additional Information Resuscitation Status: Full Code Discharge Diet: As Tolerated Discharge Activity: Activity As Tolerated Prescriptions: Daptomycin 600 mg IV DAILY 28 Days #28 vial Daptomycin [Cubicin Inj 500 mg Vial] 600 mg IV QAM 26 Days #26 vial Home Medications: Metformin HCl [Glucophage 500 mg Tablet] 500 mg PO DAILY 03/08/18 Daptomycin 600 mg IV DAILY 28 Days #28 vial 03/14/18 Daptomycin [Cubicin Inj 500 mg Vial] 600 mg IV QAM 26 Days #26 vial 03/17/18 History of Present Illness Patient complains of: Lower Back Pain History of Present Illness: SY MONTE is a 72 year old male SY with PMHx of DM, who presented to the ED complaining of lower back pain which started about 2 weeks prior to admission. Pain was progressively getting worse, not controlled with OTC analgesics. Pain was was nonradiating and sharp in nature. Denied any recent trauma or heavy lifting. He also c/o of fever and chills and home temperature of 102 F as well as some urinary frequency and urgency at times. Denied any abdominal pain, nausea/vomiting, groin numbness, bowel/urinary incontinence or lower extremity weakness, dysuria, chest pain, shortness of breath, headaches or blurry vision at this time. Patient is from out of town, [facility]. 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 States that he was diagnosed with diabetes type 2 last year and has been on metformin since. Family and patient tells me that his A1c is well controlled but does not know how much it is. CT of the lumbar spine was done in ED which showed pathological fracture of L1. Patient was admitted for possible sepsis and UTI Hospital Course Hospital Course: 1. Sepsis/Bacteremia Elevated white count, tachycardia on admission and abnormal UA. Sepsis likely secondary to his UTI. Patient was started on IV antibiotics. Blood cultures came back positive for MSSA and ID was consulted. ID recommended PICC line placement and IV antibiotics 4-6 weeks from his last negative blood culture. ID recommendations were either Ancef or Daptomycin. Daptomycin was chosen over Ancef due to once daily dosing. PICC line placement was attempted by surgery but due to fever of UE DVT it was cancelled and a Hickmen was placed the following day. (please refer to surgery operative note). An UE venous Doppler was done which was read as negative for any thrombosis. Since patient lives in [place] and wished to continue his treatment there, all appropriate arranged by Road [facility]ender and patient was discharged to go to [facility] and resume his care there. 2. UTI Urine cultures were negative. Patient was started on IV antibiotics. 3.Acute Renal Failure Patient was started on IV fluids and renal function improved quite significantly. Underlying cause possibly due to dehydration vs underlying prostate cancer. Renal US was suboptimal and did not show any hydronephrosis. Non-contrast ct of abdomen did not show any hyronephrosis. 4.Pathologic Fracture of Spine/Prostate Cancer. Oncology was consulted work up was done for Prostate CA vs MM. PSA came back elevated. As patients lives in [place], [place], he wished to undergo further workup and treatment regarding his malignancy once he is back in [place], [place]. Our oncology team discussed plan of care with him and he agreed to undergo further diagnostic evaluation and treatment once he is back in [place], [place]. As per notes Dr Day Richardson oncologist Dr. Jovany Templeton of [place] oncology was to be contacted and plan of care discussed. 5. Diabetes He was started on insulin sliding scale and asked to resume his metformin after discharge. 6. Hyperkalemia resolved and kidney function started getting better. Note: During hospitalization patient was extremely anxious to get back to [facility] where he has his business but kindly agreed until Wallace/PICC line was placed which was unfortunately delayed due consecutive positive blood cultures. Patient wished to resume all his treatment and further diagnostic evaluations regarding his underlying malignancy in [facility]. Physical Exam Vital Signs: Temp Pulse Resp BP Pulse Ox 97.7 F 55 L 17 138/67 H 100 08/27/18 08:39 03/17/18 08:39 03/17/18 08:39 03/17/18 08:39 03/17/18 08:39 General appearance: PRESENT: no acute distress, well-developed, well-nourished Head exam: PRESENT: atraumatic, normocephalic Eye exam: PRESENT: conjunctiva pink, EOMI, PERRLA. ABSENT: scleral icterus Ear exam: PRESENT: normal external ear exam Mouth exam: PRESENT: moist, tongue midline Neck exam: ABSENT: carotid bruit, JVD, lymphadenopathy, thyromegaly Respiratory exam: PRESENT: clear to auscultation syed. ABSENT: rales, rhonchi, wheezes Cardiovascular exam: PRESENT: RRR. ABSENT: diastolic murmur, rubs, systolic murmur Pulses: PRESENT: normal dorsalis pedis pul Vascular exam: PRESENT: normal capillary refill GI/Abdominal exam: PRESENT: normal bowel sounds, soft. ABSENT: distended, guarding, mass, organolmegaly, rebound, tenderness Rectal exam: PRESENT: deferred Extremities exam: PRESENT: full ROM. ABSENT: calf tenderness, clubbing, pedal edema Neurological exam: PRESENT: alert, awake, oriented to person, oriented to place , oriented to time, oriented to situation, CN II-XII grossly intact. ABSENT: motor sensory deficit Psychiatric exam: PRESENT: appropriate affect, normal mood. ABSENT: homicidal ideation, suicidal ideation Skin exam: PRESENT: dry, intact, warm. ABSENT: cyanosis, rash Results Laboratory Results: 03/17/18 05:52 03/17/18 05:52 Impressions: Renal Ultrasound 03/08/18 00:00 IMPRESSION: Suboptimal exam due to overlying bowel gas. No hydronephrosis. Limited or Localized CT 03/08/18 09:07 IMPRESSION: 1. No nephrolithiasis. Ectopic insertion of the ureters, as detailed above. 2. Diffusely sclerotic appearance of the osseous structures, concerning for metastatic disease. Pathological fracture of the posterior inferior L1 vertebral body with 8 mm of retropulsion into the central canal. 3. Cholelithiasis. 4. Prostatomegaly. 5. Splenomegaly. 6. Small hiatal hernia with mild wall thickening. Correlate with patient's endoscopy history Venous Doppler Study 03/14/18 00:00 IMPRESSION: NO EVIDENCE DVT OR SVT RIGHT OR LEFT ARM. Chest X-Ray 03/15/18 00:00 IMPRESSION: NO PNEUMOTHORAX FOLLOWING CATHETER PLACEMENT. NO ACUTE FINDINGS. Guidance Fluoroscopy 03/15/18 00:00 IMPRESSION: IMAGE(S) OBTAINED DURING PROCEDURE. Qualifiers - * PATIENT BEING DISCHARGED WITH ANY OF THE FOLLOWING DIAGNOSIS: No
== END 2018-03-17 09:15 | disposition home or self-care (01) | DRG 872 ==
LOC: ER 07:58 → EH 14:33 → 4S 16:11
PROVIDERS: ADMIT Internal Medicine; ATTEND Internal Medicine
PROC: 0JH63XZ Insertion of Tunneled Vascular Access Device into Chest Subcutaneous Tissue and Fascia, Percutaneous Approach (ICD-10-PCS; 2018-03-08)
PROC: B518ZZA Fluoroscopy of Superior Vena Cava, Guidance (ICD-10-PCS; 2018-03-15)
PROC: 02HV33Z Insertion of Infusion Device into Superior Vena Cava, Percutaneous Approach (ICD-10-PCS; principal; 2018-03-15 08:30)
DX: A41.01 Sepsis due to Methicillin susceptible Staphylococcus aureus (principal); N39.0 Urinary tract infection, site not specified; N17.9 Acute kidney failure, unspecified; I82.611 Acute embolism and thrombosis of superficial veins of right upper extremity; C79.51 Secondary malignant neoplasm of bone; M84.58XA Pathological fracture in neoplastic disease, other specified site, initial encounter for fracture; E11.9 Type 2 diabetes mellitus without complications; Z79.84 Long term (current) use of oral hypoglycemic drugs; K44.9 Diaphragmatic hernia without obstruction or gangrene; C61 Malignant neoplasm of prostate; E87.5 Hyperkalemia; Z90.49 Acquired absence of other specified parts of digestive tract; Z88.0 Allergy status to penicillin
CPT/HCPCS: 36415; 532; 71045; 76380; 76770; 77001; 80048; 80053; 80061; 80076; 80202; 81001; 82550; 82784; 82962; 83036; 83605; 83690; 83735; 83883; 84100; 84154; 84443; 85025; 85027; 85610; 86320; 87040; 87077; 87086; 87186; 93005; 93010; 93306; 93970; 96361; 96365; 96367; 96375; 99285; C1751; C1752; J0610; J0690; J0696; J0878; J1100; J1642; J1644; J1815; J2250; J2270; J2405; J2704; J3010; J3370; J3490; J7030; J7060